=== PATIENT | male | born 1940 | race Caucasian/White ===

== ENCOUNTER 2017-12-17 06:56 | Day surgery (SDC) | payer MEDICARE ==
[2017-12-16 12:40] VITALS: BMI 31.5
[~2017-12-17 06:56] MED LIST: FLU VACC TS2017-18 (>65YR) 0.5 ML SYRINGE IM ONE
--- NOTE | 2017-12-17 08:19 | RAD ---
LUMBAR SPINE 4 VIEWS: HISTORY: Lumbar radiculopathy. FINDINGS: Severe hypertrophic degenerative changes re noted with large bridging osteophytes seen anteriorly and laterally throughout the lumbar spine, but most prominent at L1-2 and L2-3. Loss of disk space at a ll levels. No evidence of spondylolisthesis or spondylolysis. Prominent facet hypertrophy. Slight curvature to the right. IMPRESSION: Severe hypertrophic degenerative changes of the lumbar spine. POS: [facility]
[2017-12-17 08:35] VITALS: BP 163/72; TEMP 97.5
--- NOTE | 2017-12-17 10:23 | CT ---
CT LUMBAR MYELOGRAM: INDICATION: Lumbar radiculopathy. TECHNIQUE: Multiple CT images were obtained of the lumbar spine following intrathecal administration of an Isovu e contrast solution. Please see the separately dictated lumbar myelogram for details concerning the injection technique. Axial, coronal, and sagittal reformatted images were constructed from the raw d reymundo. Comparisons are made with the prior CT of the chest, abdomen, and pelvis dated 12/30/15. FINDINGS: There are moderate calcifications noted involving the abdominal aorta. There is a 1.6 cm nodule invo lving the left adrenal gland that cannot be fully characterized on the current study. This is relati vely stable from the comparison 05/27/16. There is a 1 cm nodule involving the right adrenal gland sary t is stable to the prior exam. There are scattered diverticula involving the colon. No acute fracture is evident. There is degenerative dextroscoliosis of the lumbar spine centered at L2-3. There is multilevel vacuum disk phenomenon seen at all lumbar intervertebral levels. The conu s is seen to terminate at L1. There are moderate degenerative changes of both SI joints. At L5-S1, there is loss of disk space height in addition to a broad-based disk-osteophyte complex wit h moderate to severe bilateral facet degenerative change inducing severe bilateral neural foraminal n arrowing. At L4-5, there is an asymmetric to the left broad-based disk-osteophyte complex. There is a superimp osed right paracentral protrusion. The procedure causes moderate narrowing of the right lateral rece ss with probable contrast of the traversing right L5 nerve root best seen on image 85 of series 3 and image 36 of series 401. The broad-based bulge in addition to the protrusion induces mild central ca nal narrowing. There is severe left neural foraminal narrowing due to the broad-based disk-osteophyt e complex and facet joint degenerative change. There is moderate sever right neural foraminal narrow ing. At L3-4, there is a broad-based disk-osteophyte complex also asymmetric to the left. There is ligame ntum flavum hypertrophy and facet hypertrophy inducing mild to moderate central canal narrowing. The re is loss of disk space height in addition to the disk-osteophyte complex and facet degenerative ralph nge inducing severe bilateral neural foraminal narrowing. At L2-3, there is retrolisthesis of L2 on 3. There is a broad-based disk-osteophyte complex. There is facet joint degenerative change. There is ligamentum flavum hypertorphy inducing moderate central canal narrowing. The constellation of finding also induces severe bilateral neural foraminal narrow ing. There is a pars defect seen on the left at L3. At the L1-L2 level, there is an asymmetric to the right disk-osteophyte complex. There is no appreci able central canal narrowing. Disk-osteophyte complex in addition to the facet hypertrophy induces m ild right neural foraminal narrowing. At T12-L1, there is no appreciable central canal or neural foraminal narrowing. IMPRESSION: 1. Multilevel neural foraminal narrowing most prominent from L2-3 through L5-S1. 2. There is central canal narrowing from L2-3 through L4-5, but most severe at L2-3. 3. There is a right paracentral protrusion at L4-5 causing moderate encroachment of the lateral rece ss with contact of the traversing right L5 nerve root. 4. Bilateral adrenal nodules are incompletely characterized but stable since the comparison in 2016. If clinically indicated, followup CT of the abdomen utilizing adrenal mass protocol may be helpful for further characterization. 5. Left pars defect at L3. POS: [facility]
--- NOTE | 2017-12-17 13:22 | RAD ---
FLUOROSCOPIC GUIDED LUMBAR MYELOGRAM: Date: 12/17/17 INDICATION: Lumbar radiculopathy. TECHNIQUE: Informed consent was obtained. Preprocedure cement block maker images were performed of the lumbar spine for delvis ng purposes. Site overlying the right aspect of the L3-4 interlaminar space was marked. The site was prepped and draped in the usual sterile fashion. Buffered 1% lidocaine was administered to overlying subcutaneous tissues. Under fluoroscopic guidance, a 22 gauge spinal needle was guided into the theca l sac. There was spontaneous return of CSF fluid at the hub. Following this, 12 mL of Isovue 200 solu tion was administered into the intrathecal space. There was visualization of the nerve roots within t he lower lumbar spine. The inner stylette was placed and needle was removed. The patient tolerated th e injection without difficulty. The patient is to have a follow-up CT lumbar myelogram for additional evaluation of lumbar spine. Total fluoroscopic time is 0.2 minutes with a total exposure of 463.8 mGy*cm^2. FINDINGS: There is degenerative dextroscoliosis of the lumbar spine centered at L2-3. There is severe multileve l disc degenerative and facet osteoarthritic change. No acute osseous abnormality is evident. There i s moderate degenerative change of both SI joints. IMPRESSION: Successful lumbar myelogram. POS: [facility]
== END 2017-12-17 09:55 | disposition home or self-care (01) ==
LOC: RAD 06:56
PROVIDERS: ATTEND Physician Assistant Surgical
DX: M48.062 Spinal stenosis, lumbar region with neurogenic claudication (principal); M51.16 Intervertebral disc disorders with radiculopathy, lumbar region; E27.8 Other specified disorders of adrenal gland; D53.9 Nutritional anemia, unspecified; Z95.0 Presence of cardiac pacemaker; Z79.82 Long term (current) use of aspirin; Z98.890 Other specified postprocedural states
CPT/HCPCS: 62304; 72120; 72132

== ENCOUNTER 2018-06-18 10:29 | Outpatient (CLI) | payer MEDICARE ==
[2018-06-18 12:44] LABS: Mean Corpuscular HGB CONC 33.7 g/dL (32.0-36.0); Mean Corpuscular Hemoglobin 32.6 pg (27.0-31.0); Mean Corpuscular Volume 96.7 fL (78.0-98.0); Mean Platelet Volume 7.9 fL (7.4-10.4); Platelet Count 182 thou/uL (130-400); RBC Distribution Width 12.9 % (11.5-14.5); Red Blood Cell (RBC) Count 3.06 mill/uL (4.70-6.10); White Blood Cell (WBC) Count 6.3 thou/uL (4.8-10.8)
[2018-06-18 13:03] LABS: Anion Gap 15 mmol/L (10-20); BUN (Urea Nitrogen) 37 mg/dL (8.4-25.7); Calc. Creatinine Clearance 0 mL/min (70-130); Calcium 8.9 mg/dL (7.8-10.44); Carbon Dioxide 23 mmol/L (23-31); Chloride 104 mmol/L (98-107); Estimated GFR-MDRD 39; Glucose 132 mg/dL (83-110); Potassium 4.1 mmol/L (3.5-5.1); Sodium 138 mmol/L (136-145)
[2018-06-18 13:05] LABS: INR-International Normal Ratio 1.1; Prothrombin Time 13.9 SEC (12.0-14.7)
[2018-06-18 13:06] LABS: PTT 34.2 SEC (22.9-36.1)
--- NOTE | 2018-06-18 15:18 | EKG ---
Test Reason : Blood Pressure : / mmHG Vent. Rate : 062 BPM Atrial Rate : 625 BPM P-R Int : 000 ms QRS Dur : 138 ms QT Int : 486 ms P-R-T Axes : 000 -73 095 degrees QTc Int : 493 ms AV sequential or dual chamber electronic pacemaker When compared with ECG of 05-MAR-2016 09:00, Vent. rate has increased BY 2 BPM Confirmed by JOSE WEST MD ([id number]) on 06/18/2018 3:18:25 PM Referred By: MERARI Confirmed By:JOSE WEST MD
== END 2018-06-18 10:30 | disposition home or self-care (01) ==
LOC: LABBT 10:29
PROVIDERS: ATTEND Surgery
DX: Z01.812 Encounter for preprocedural laboratory examination (principal); M48.061 Spinal stenosis, lumbar region without neurogenic claudication; M54.16 Radiculopathy, lumbar region
CPT/HCPCS: 80048; 85027; 85610; 85730; 93005; 93010

== ENCOUNTER 2018-06-25 12:17 | Day surgery (SDC) | payer MEDICARE ==
[2018-06-18 10:49] VITALS: BMI 32.1
[2018-06-25] MEDS ORDERED: CEFAZOLIN/Water 2 GM/20 ML SYRINGE ONE (13:05)
[2018-06-25] MEDS ORDERED: Sodium Chloride 0.9% 10 ML ONE (15:00)
[2018-06-25] MEDS ORDERED: Bacitracin Zinc Ointment 30 gm TUBE ONE (15:00)
[2018-06-25] MEDS ORDERED: Thrombin 5000 UNITS/5 ML VIAL ONE (15:00)
[2018-06-25] MEDS ORDERED: Fentanyl 100 MCG/2 ML VIAL ONE ×3 (15:02→18:44)
[2018-06-25] MEDS ORDERED: Albumin 5% 500 ML ONE (17:13)
[2018-06-25] MEDS ORDERED: Milk Of Magnesia 30 ML UDCUP PO PRN (18:33)
[2018-06-25] MEDS ORDERED: Mag-Al 1200 mg/1200 mg/30 ML UDCUP PO PRN (18:33)
[2018-06-25] MEDS ORDERED: Acetaminophen/Codeine 30-300mg Tablet PO PRN (18:33)
[2018-06-25] MEDS ORDERED: traMADol HCl 50 MG TAB PO PRN (18:33)
[2018-06-25] MEDS ORDERED: Bisacodyl 10 MG SUPP PR PRN (18:33)
[2018-06-25] MEDS ORDERED: tiZANidine HCl 4 MG TAB PO PRN (18:33)
[2018-06-25] MEDS ORDERED: Fleet Enema 133 ML BOT PR PRN (18:33)
[2018-06-25] MEDS ORDERED: Acetaminophen 325 MG TAB PO PRN (18:33)
[2018-06-25] MEDS ORDERED: Promethazine HCl 25 MG/ML VIAL IM PRN (18:33)
[2018-06-25] MEDS ORDERED: HYDROcodone/Acetaminophen 7.5/325 mg Tablet PO PRN (18:33)
[2018-06-25] MEDS ORDERED: Furosemide 40 MG TAB PO PRN (18:37)
[2018-06-25] MEDS ORDERED: Sodium Chloride 0.9% 1,000 ML IV SCH (18:45)
[2018-06-25] MEDS ORDERED: Carvedilol 25 MG TAB PO SCH (20:00)
[2018-06-25] MEDS ORDERED: cloNIDine 0.1 MG TAB PO SCH (21:00)
[2018-06-25] MEDS: CEFAZOLIN/Water 2 GM/20 ML SYRINGE SLOW IVP SCH (21:08)
--- NOTE | 2018-06-25 23:05 | OP ---
SURGEON: Jason Morocho M.D. Neurosurgery. VP OF MARKETING: Matty Guido PA-C. PREPROCEDURE DIAGNOSES: Multilevel lumbar stenosis with low back and leg pain. POSTPROCEDURE DIAGNOSES: Multilevel lumbar stenosis with low back and leg pain. PROCEDURES: 1. L2-L3, L3-L4, L4-L5 laminectomies, partial facetectomies, and foraminotomies of the L2, L3, L4, L 5 nerve roots. DESCRIPTION OF PROCEDURE: After informed consent was obtained from the patient, the patient was brou ght to the OR, he was placed in excellent general endotracheal anesthesia and positioned prone on the OR table. All appropriate points were padded. We identified the L2, L3, L4, L5 dorsal spines and l tadeo. This region was sterilely cleansed, prepared, and draped. Proper patient pause and identific ation was carried out. The wound was then opened in combination of sharp, monopolar and blunt dissec tion and the L2, L3, L4, L5 dorsal spines lamina were exposed. Localization film confirmed our area of interest. We then performed an L2, L3, L4, L5 laminectomies, partial facetectomies and foraminoto mies over the L2, L3, L4, L5 nerve roots. We had excellent decompression of the common dural tube an d the nerve roots. Copious irrigation occurred throughout. The wound was then maximally hemostased throughout and closed in anatomical layers following sprinkle vancomycin powder.
[2018-06-26] MEDS: CEFAZOLIN/Water 2 GM/20 ML SYRINGE SLOW IVP SCH (05:50)
[2018-06-26] MEDS ORDERED: Potassium Chloride 8 MEQ TAB PO SCH (08:00)
[2018-06-26] MEDS ORDERED: metFORMIN 500 MG TAB PO SCH (08:00)
[2018-06-26] MEDS ORDERED: Carvedilol 25 MG TAB PO SCH (08:00)
[2018-06-26] MEDS ORDERED: Ferrous Sulfate 325 MG TAB PO SCH (08:00)
[2018-06-26] MEDS ORDERED: Dronedarone HCl 400 MG TAB PO SCH (08:00)
[2018-06-26 08:38] VITALS: BP 137/77; TEMP 98.3
[2018-06-26] MEDS ORDERED: Valsartan 80 MG TAB PO SCH (09:00)
[2018-06-26] MEDS ORDERED: Famotidine 20 MG TAB PO SCH (09:00)
[2018-06-26] MEDS ORDERED: CALCIUM CARB CIT PO SCH (09:00)
[2018-06-26] MEDS ORDERED: MAGNESIUM OX PO SCH (09:00)
[2018-06-26] MEDS ORDERED: Non-Formulary Item 1 EACH (Valsartan/Hydrochlorothiazide [Valsartan-Hctz 320-25 Mg Tab] 1 PO SCH (09:00)
[2018-06-26] MEDS ORDERED: Hydrochlorothiazide 25 MG TAB PO SCH (09:00)
--- NOTE | 2018-06-26 17:57 | DIS ---
DATE OF ADMISSION: 06/25/2018 DATE OF DISCHARGE: 06/26/2018 DISCHARGE DIAGNOSES: Include, 1. Low back pain with lumbar radiculopathy. 2. Multilevel lumbar stenosis. HOSPITAL COURSE: Mr. Parry was admitted to undergo surgical procedure with Dr. Morocho including L2- L5 laminectomies, facetectomies and foraminotomies. The patient tolerated the procedure well and rec overed for 1 overnight stay in the surgical floor. At the time of discharge, he has met criteria for dismissal. Appropriate outpatient followup appointments and education were provided. He had good s trength in the bilateral lower extremities and was walking well. The patient's family was pleased wi th his outcome postoperatively. They understand to call the office with additional questions or conc erns prior to his next followup appointment.
== END 2018-06-26 11:51 | disposition home or self-care (01) ==
LOC: SDC 12:17 → SURG B 19:48 → SDC 06-26 11:51
PROVIDERS: ATTEND Surgery
PROC: 01NB0ZZ Release Lumbar Nerve, Open Approach (ICD-10-PCS; principal; 2018-06-25)
DX: M48.061 Spinal stenosis, lumbar region without neurogenic claudication (principal); M54.16 Radiculopathy, lumbar region
CPT/HCPCS: 63047; 63048 ×2; 76001; 96374; P9045; A4216; J3010; J3370; J3490

== ENCOUNTER 2018-12-18 15:27 | Inpatient (IN) | payer MEDICARE ==
[2018-12-18 16:11] LABS: #Eosinphils 0.2 thou/uL (0.0-0.7); #Lymphocytes 0.9 thou/uL (1.20-3.40); #Neutrophils 4.6 thou/uL (1.40-6.50); %Basophils 0.4 % (0.0-1.0); %Eosinophils 3.4 % (0.0-10.0); %Lymphocytes 13.6 % (21.0-51.0); %Monocytes 14.5 % (0.0-10.0); %Neutrophils 68.1 % (42.0-75.0); Hemoglobin 9.6 g/dL (14.0-18.0); Mean Corpuscular HGB CONC 32.5 g/dL (32.0-36.0); Mean Corpuscular Hemoglobin 31.8 pg (27.0-31.0); Mean Corpuscular Volume 97.9 fL (78.0-98.0); Mean Platelet Volume 9.3 fL (7.4-10.4); Platelet Count 190 thou/uL (130-400); RBC Distribution Width 14.1 % (11.5-14.5); Red Blood Cell (RBC) Count 3.03 mill/uL (4.70-6.10); White Blood Cell (WBC) Count 6.8 thou/uL (4.8-10.8)
[2018-12-18 16:32] LABS: ALT (SGPT) 55 U/L (8-55); AST (SGOT) 68 U/L (5-34); Albumin 3.8 g/dL (3.4-4.8); Alkaline Phosphatase 159 U/L (40-150); Anion Gap 17 mmol/L (10-20); BUN (Urea Nitrogen) 79 mg/dL (8.4-25.7); Bilirubin, Total 0.6 mg/dL (0.2-1.2); Calc. Creatinine Clearance 0 mL/min (70-130); Calcium 9.3 mg/dL (7.8-10.44); Carbon Dioxide 23 mmol/L (23-31); Chloride 95 mmol/L (98-107); Estimated GFR-MDRD 21; Globulin 3.5 g/dL (2.4-3.5); Glucose 122 mg/dL (83-110); Protein, Total 7.3 g/dL (5.8-8.1); Sodium 131 mmol/L (136-145)
[2018-12-18 16:53] LABS: CKMB 3.6 ng/mL (0-6.6)
--- NOTE | 2018-12-18 16:56 | RAD ---
CHEST ONE VIEW: 12/18/18 HISTORY: Shortness of breath. COMPARISON: Radiograph 01/14/16. FINDINGS: The heart size is mildly enlarged. Mild pulmonary venous congestion. No pneumothorax. Chronic blunti ng of the left lateral costophrenic sulcus due to increased pericardial fat. IMPRESSION: Similar exam. No acute intrathoracic abnormality. POS: [facility]
[2018-12-18] MEDS ORDERED: Nitroglycerin 2% Ointment 1 INCH/1 GM Packet ONE (17:09)
[2018-12-18] MEDS ORDERED: Aspirin 325 MG TAB ONE (17:09)
[2018-12-18] MEDS ORDERED: Furosemide 40 MG/4 ML VIAL ONE (17:09)
[2018-12-18] MEDS ORDERED: Acetaminophen 325 MG TAB PO PRN (18:53)
[2018-12-18] MEDS ORDERED: Ondansetron ODT 4 MG TAB PO PRN (18:53)
[2018-12-18] MEDS ORDERED: Ondansetron PF 4 MG/2 ML Vial IVP PRN (18:53)
[2018-12-18] MEDS ORDERED: HumaLOG 300 UNITS/3 ML VIAL SC PRN ×2 (18:56)
[2018-12-18] MEDS ORDERED: Dextrose 50% Abboject 50 ML SYRINGE SLOW IVP PRN (18:56)
[2018-12-18] MEDS ORDERED: Dextrose 5% in Water 1,000 ML IV PRN (18:56)
[2018-12-18] MEDS ORDERED: Dronedarone HCl 400 MG TAB PO SCH (20:00)
[2018-12-18 20:08] LABS: Troponin I 0.232 ng/mL (< 0.028)
--- NOTE | 2018-12-18 20:12 | HP ---
PRIMARY CARE PHYSICIAN: Dr. Forrest Barrera. PRIMARY APPEALS REFEREE: Dr. Babin. CHIEF COMPLAINT: Dyspnea on exertion. HISTORY OF PRESENT ILLNESS: Mr. Parry is a pleasant 78-year-old male with past medical history of CHF with atrial fibrillation, status post pacemaker; hypertension; hyperlipidemia; diabetes mellitus; and gout, who had presented to [facility] after experiencing worsening shortness of breath over the last week. He states he becomes more short of breath with exertion, he had denied any fever, chills, any headache, dizziness, or blurred vision. Denies any chest pain, abdominal pain, nausea, or vomiting. He reports daily alcohol drinker; however, he has not drank in over a week due to not feeling well. He states that he sees Dr. Babin, compensation administrator. He states that he underwent an echocardiogram back in September, which he reports Dr. Babin telling him that he has systolic heart failure, which is mild. However, he was not able to tell me any further details. He reports being recently diagnosed with gout and started on Colcrys and allopurinol. During his initial workup, he was found to be chronically anemic with a hemoglobin of 9.6, which appears to be about his baseline, he takes iron supplementation at home. Sodium is low at 131, creatinine is elevated at 2.93. Lactic acid normal at 0.8. Troponin is indeterminately elevated at 0.256. BNP elevated at 990.5. Chest x-ray revealed heart size is mildly enlarged with mild pulmonary venous congestion with no pneumothorax noted. He was given aspirin 325 mg in the emergency department along with 1 inch of nitro transdermal and IV Lasix 40 mg x1. Vital signs remained stable with a blood pressure of 135/60, pulse 65, respirations 22, temperature 98.7 degrees Fahrenheit, and O2 saturation is 100% on room air. It was determined that the patient be admitted under observation for continued diuresis. Cardiology Services will be consulted for further evaluation, and we will seek to obtain his records from Dr. Babin' office for recent echocardiogram and possible other cardiac workup in the past. REVIEW OF SYSTEMS: All other systems reviewed and found to be negative unless mentioned in HPI. PAST MEDICAL HISTORY: Congestive heart failure, atrial fibrillation, hypertension, hyperlipidemia, diabetes mellitus, gout, obesity, and chronic anemia due to iron deficiency anemia. PAST SURGICAL HISTORY: 1. Back surgery with Dr. Morocho in May 2018. 2. Right wrist carpal tunnel release. PAST PSYCHIATRIC HISTORY: None. SOCIAL HISTORY: The patient reports drinking 3 to 4 beers daily; however, has not had a drink in over a week due to not feeling well. Denies any tobacco or illicit drug use. ALLERGIES: KNOWN ALLERGIES, NONE. CURRENT HOME MEDICATIONS: 1. Aspirin 81 mg daily. 2. Clonidine 0.1 mg oral once daily. 3. Valsartan/hydrochlorothiazide 320/25 mg oral once daily. 4. Carvedilol 25 mg oral once daily. 5. Furosemide 80 mg p.o. b.i.d. 6. Multaq 400 mg oral twice daily. 7. Colcrys 0.6 oral twice daily. 8. Januvia 100 mg oral once daily. 9. Pepcid 40 mg oral once a day. 10. Calcium/magnesium 500/250 mg oral once daily. 11. Potassium 595 mg oral once daily. 12. Iron 65 mg oral twice daily. 13. Allopurinol 100 mg oral once daily. PHYSICAL EXAMINATION: VITAL SIGNS: Blood pressure 135/60, pulse 65, respirations 22, temperature 98.7 degrees Fahrenheit, and O2 saturation is 100% on room air. GENERAL: The patient is awake, alert, and oriented x3. No acute distress noted. He appears to be obese. HEENT: Atraumatic, normocephalic. Pupils round and reactive to light. Extraocular muscles intact. Moist mucous membranes noted. NECK: Soft and supple. No JVD. No bruit noted. CARDIOVASCULAR: Positive S1 and S2. Regular rate and rhythm, 2/6 systolic murmur auscultated. RESPIRATORY: Clear to auscultation bilaterally. No wheezes, rales, or rhonchi. ABDOMEN: Soft, nontender. Bowel sounds present. No guarding, no rebound. MUSCULOSKELETAL: Strength 3+ bilaterally in upper extremities, which appears to be patient's baseline. Moves all extremities equal. Pedal and radial pulses palpable and equal bilaterally. NEUROLOGIC: Cranial nerves 2 through 12 grossly intact. No focal deficits noted. Speech, intact and normal. Gait, not assessed. SKIN: Warm, dry, and intact. No rashes. No lesions. The patient does have a small lipoma on the right side of the jain. He also has surgical scarring, right wrist and posterior trunk. PSYCHIATRIC: Good mood and affect. LABORATORY DATA: WBC 6.8, RBC 3.03, hemoglobin 9.6, and platelets 190. Sodium 131, potassium 4.0, anion gap 17, BUN 79, creatinine 2.93, estimated GFR 21, glucose 122, lactic acid 0.8, alkaline phosphatase 159, CK-MB 3.6, troponin 0.256. BNP 990.5. DIAGNOSTIC IMAGING: Chest x-ray showed heart size is mildly enlarged with mild pulmonary venous congestion. No pneumothorax noted. ASSESSMENT AND PLAN: 1. Acute on chronic congestive heart failure. Continue with IV furosemide for further diuresis. Continue on the patient's home regimen. Cardiology Services will be consulted for further evaluation, and we will seek to obtain further records from Dr. Babin' office for recent echocardiogram. We will await further recommendations from Cardiology with possible further cardiac workup. 2. Elevated troponin, currently at indeterminate 0.256. Trend troponins. This can likely be secondary to acute on chronic heart failure. EKG showing paced rhythm. 3. Acute on chronic kidney disease, stage 2. Recheck BMP in a.m. Hold nephrotoxic medications. 4. Hypertension, currently stable. Continue the patient's home regimen; however, we will hold the patient's losartan due to acute on chronic kidney disease. We will restart once his creatinine is improved. 5. Diabetes mellitus. We will place the patient on insulin sliding scale with Accu-Cheks. Also, placed on consistent carb diet. 6. Hyperlipidemia. Continue on the patient's home regimen. 7. Deep venous thrombosis and gastrointestinal prophylaxis. 8. Code status, full code. Surrogate decision maker will be his . DISPOSITION: Pending further workup and clinical findings. Job ID: [id number]
[2018-12-18] MEDS: Carvedilol 25 MG TAB PO SCH (20:31)
[2018-12-18] MEDS: cloNIDine 0.1 MG TAB PO SCH (20:31)
[2018-12-18] MEDS ORDERED: Famotidine 20 MG TAB PO SCH (21:00)
[2018-12-18 22:26] VITALS: BMI 33.2
[2018-12-18 22:55] LABS: Troponin I 0.233 ng/mL (< 0.028)
[2018-12-19 05:25] LABS: Band 5 % (5-11); Eosinophils 8 % (0-10); Hemoglobin 8.7 g/dL (14.0-18.0); Lymphocytes 21 % (21-51); MDiff Complete? YES; Mean Corpuscular HGB CONC 32.9 g/dL (32.0-36.0); Mean Corpuscular Hemoglobin 32.2 pg (27.0-31.0); Mean Corpuscular Volume 97.9 fL (78.0-98.0); Metamyelocyte 1 % (0-0); Monocytes 10 % (0-10); Neutrophil 52 % (42-75); Platelet Count 171 thou/uL (130-400); Platelet Morphology Comment Appears Adequate; RBC Distribution Width 14.1 % (11.5-14.5); RBC Morphology Normal; Reactive Lymphocytes 1 % (0-10); Red Blood Cell (RBC) Count 2.71 mill/uL (4.70-6.10); White Blood Cell (WBC) Count 4.5 thou/uL (4.8-10.8)
[2018-12-19 05:26] LABS: Anion Gap 17 mmol/L (10-20); BUN (Urea Nitrogen) 79 mg/dL (8.4-25.7); Calc. Creatinine Clearance 35 mL/min (70-130); Calcium 8.8 mg/dL (7.8-10.44); Carbon Dioxide 24 mmol/L (23-31); Chloride 98 mmol/L (98-107); Estimated GFR-MDRD 24; Glucose 105 mg/dL (83-110); Potassium 3.4 mmol/L (3.5-5.1); Sodium 136 mmol/L (136-145)
[2018-12-19] MEDS: Furosemide 40 MG/4 ML VIAL SLOW IVP SCH ×2 (06:12→15:06)
[2018-12-19] MEDS ORDERED: Ferrous Sulfate 325 MG TAB PO SCH (09:00)
[2018-12-19] MEDS: Aspirin Chewable 81 MG TAB PO SCH (09:22)
[2018-12-19] MEDS: Allopurinol 100 MG TAB PO SCH (09:22)
[2018-12-19] MEDS: Carvedilol 25 MG TAB PO SCH ×2 (09:22→21:17)
[2018-12-19] MEDS: Dronedarone HCl 400 MG TAB PO SCH ×2 (09:22→16:16)
[2018-12-19] MEDS: Famotidine 20 MG TAB PO SCH (09:22)
[2018-12-19] MEDS: Colchicine 0.6 MG TAB PO SCH ×2 (09:23→21:17)
--- NOTE | 2018-12-19 09:50 | PDOC.PN ---
- Subjective Encounter Start Date: 12/19/18 Encounter Start Time: 09:47 Subjective: Patient reports increased abdominal distention over the last couple of days -: has had BARRETO, which he doesnt have at baseline despite hx of CHF. -: Has had black stools which happens often due to Fe infusions. His last infusion was 2 weeks ago. 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 States he was told he had a chronic "leak". Denies any abdominal pain. No n/v. Tolerating food intake. Fluid intake consists of 3-4 cans of beer a day, 12 oz, and coffee. Denies every having symptoms of alcohol withdrawal i.e. tremors or seizures. Denies any urinary symptoms. No dysuria or hematuria. Afebrile without chills or sweats. No headaches or dizziness. Has not had any chest pain. No lower leg swelling or calf tenderness. No cough or hemoptysis. - Objective Resuscitation Status - Order Detail: 12/18/18 18:53 Resuscitation Status Routine Co-Sign Provider: Resuscitation Status: FULL: Full Resuscitation Vital Signs & Weight: Vital Signs (12 hours) Temp Pulse Resp BP Pulse Ox 12/19/18 03:57 97.8 F 61 18 112/57 L 97 12/18/18 23:32 97.9 F 70 20 91/49 L 97 Weight Admit Weight 238 lb Weight 235 lb 11.2 oz I&O: 12/18/18 12/19/18 12/20/18 06:59 06:59 06:59 Intake Total 360 Output Total 1200 600 Balance -840 -600 Result Diagrams: 12/19/18 04:32 12/19/18 04:32 Additional Labs: Accuchecks 12/18/18 20:29 POC Glucose 177 H Phys Exam - Physical Examination Constitutional: NAD Sat upright in chair HEENT: PERRLA, sclera anicteric, oral pharynx no lesions Neck: supple, full ROM Respiratory: clear to auscultation bilateral reduced at bases Cardiovascular: RRR Gastrointestinal: soft, non-tender distended abdomen, no bowel sounds, no guarding/rigidity Musculoskeletal: no edema, pulses present Neurological: non-focal, moves all 4 limbs Psychiatric: normal affect, A&O x 3 Skin: no rash Dx/Plan (1) Anemia Code(s): D64.9 - ANEMIA, UNSPECIFIED Status: Acute (2) Chronic diastolic (congestive) heart failure Code(s): I50.32 - CHRONIC DIASTOLIC (CONGESTIVE) HEART FAILURE Status: Chronic (3) Diabetes type 2, controlled Code(s): E11.9 - TYPE 2 DIABETES MELLITUS WITHOUT COMPLICATIONS Status: Chronic (4) Hypertension Code(s): I10 - ESSENTIAL (PRIMARY) HYPERTENSION Status: Chronic (5) Pacemaker Code(s): Z95.0 - PRESENCE OF CARDIAC PACEMAKER Status: Acute Comment: Placed due to sick-sinus syndrome (6) Acute kidney injury superimposed on chronic kidney disease Code(s): N17.9 - ACUTE KIDNEY FAILURE, UNSPECIFIED; N18.9 - CHRONIC KIDNEY DISEASE, UNSPECIFIED Status: Acute - Plan BARRETO potentially due to acute exacerbation of CHF and symptomatic anemia. -: CXR notable for enlarged heart and pulmonary vascular congestion. S/p lasix -: BNP 990. Echo requested. Awaiting Cardiology. -: Abdo US ordered. Check ferritin, Type & Screen. GI consult requested. -: Keep NPO. Continue home meds. Monitor glucose. * .
[2018-12-19] MEDS: Dextrose 5% in Water 500 ML IV SCH ×2 (11:00→19:54)
--- NOTE | 2018-12-19 15:50 | CON ---
DATE OF CONSULTATION: 12/19/2018 REASON FOR CONSULTATION: Heart failure. HISTORY OF PRESENT ILLNESS: Mr. Parry is a pleasant 78-year-old black gentleman, patient of Dr. Babin, who comes to the hospital for increased shortness of breath. He had noticed for the last week, he has been noticing worsening of his shortness of breath and increased abdominal girth. He has a history of right-sided heart failure in the past with pacemaker placement again as well for sick sinus syndrome. He also has a history of atrial fibrillation, currently in sinus rhythm. He doubled up on his Lasix in the last few days to 80 b.i.d., but this was not good enough and he had to come in for evaluation. PAST MEDICAL HISTORY: 1. History of heart failure, right-sided. 2. Paroxysmal atrial fibrillation. 3. Hypertension. 4. Hyperlipidemia. 5. Type 2 diabetes. 6. Gout. 7. Obesity. 8. Chronic anemia due to iron deficiency. PAST SURGICAL HISTORY: 1. Back surgery in May of 2018. 2. Right wrist carpal tunnel release. SOCIAL HISTORY: He drinks 4 beers a day, but none in the last week. No tobacco or drugs. ALLERGIES: NO KNOWN DRUG ALLERGIES. OUTPATIENT MEDICATIONS: Include: 1. Aspirin 81 a day. 2. Clonidine 0.1 once a day. 3. Valsartan/hydrochlorothiazide 320/25 a day. 4. Carvedilol 25 a day. 5. Furosemide 80 mg b.i.d. 6. Multaq 400 mg twice a day. 7. Colcrys 0.6 b.i.d., recently started on for gout. 8. Januvia. 9. Pepcid. 10. Calcium and magnesium. 11. Potassium. 12. Iron 65 mg twice a day. 13. Allopurinol 100 mg a day. REVIEW OF SYSTEMS: A 12-point review of systems was done, and it was all negative unless stated in the history of present illness. PHYSICAL EXAMINATION: VITAL SIGNS: Temperature 97.6, pulse 69, respiratory rate 20, saturating 95% on room air, blood pressure 92/51. GENERAL: Awake, alert, and oriented x3, in no distress. HEENT: Normocephalic and atraumatic. NECK: Supple. LUNGS: Have mildly reduced breath sounds in the left base. ABDOMEN: Has positive ascitic wave. Nontender. EXTREMITIES: 1+ edema. SKIN: Warm and dry. LABORATORY DATA: Laboratory work was reviewed. CBC with a white count of 4.5, hemoglobin of 8.7, hematocrit of 26, platelet count of 171. Chemistry remarkable only for potassium of 3.4, BUN of 79, creatinine of 2.63, this has come down from yesterday at 2.93. Troponin is indeterminate x2 at 0.25 and then 0.23 and 0.23 again. BNP was 923. Echocardiogram was reviewed. He has normal LV systolic function, but RV is dilated with reduced RV systolic function, RVSP was only 29. This is all suggestive of right-sided failure. ASSESSMENT: 1. RV dysfunction. 2. Acute on chronic diastolic heart failure. 3. Alcohol use. 4. Anemia of iron deficiency. PLAN: 1. Agree with IV diuresis. 2. Echocardiogram was reviewed. 3. Continue current dose of Lasix. Continue to monitor creatinine daily. 4. Awaiting GI recommendations per primary team. 5. Dr. Babin, primary vp data, will have further recommendations in the morning. Job ID: [id number]
--- NOTE | 2018-12-19 15:56 | ULT ---
ABDOMEN ULTRASOUND: HISTORY: Abdominal distention. COMPARISON: None. TECHNIQUE: Utilizing a multihertz transducer, sonographic imaging of the abdomen is performed in the longitudina l and transverse plane. FINDINGS: Limited evaluation due to body habitus. The head and proximal pancreatic body has a normal echotexture. The remainder of the pancreas is obs cured by bowel gas. The visualized IVC is unremarkable. Aorta is obscured. Hepatic parenchyma has a normal echotexture. No hepatic masses or intrahepatic biliary dilatation. Contour of the hepatic margin maintained. Right hepatic lobe measures 16.6 cm. No sonographic evidence of cholelithiasis or pericholecystic fluid. Gallbladder wall is thickened me asuring 0.4 cm. Negative Estrada's sign. Main portal vein is patent. Appropriate directional flow. Bilateral renal cortical thinning. Bilaterally, no hydronephrosis. The right kidney measures 12.0 x 5.7 x 5.9 cm. The left kidney measures 6.3 x 5.5 x 11.3 cm. Spleen is enlarged measuring 13.6 cm. Common bile duct diameter is 0.6 cm. IMPRESSION: Nonspecific gallbladder wall thickening. If there is concern for acalculus cholecystitis, consider H THAD scan. POS: [facility]
[2018-12-19] MEDS ORDERED: GoLYTELY 4,000 ml Bottle PO SCH (20:00)
[2018-12-19] MEDS: cloNIDine 0.1 MG TAB PO SCH (21:17)
--- NOTE | 2018-12-20 00:48 | CON ---
DATE OF CONSULTATION: 12/19/2018 REASON FOR CONSULTATION: Symptomatic anemia. CONSULTING PHYSICIAN: YOLANDA Sanchez HISTORY OF PRESENT ILLNESS: The patient is a 78-year-old male with past medical history of congestive heart failure, atrial fibrillation, status post pacemaker, hypertension, hyperlipidemia, diabetes, gout, and chronic anemia, presenting with increased shortness of breath. He states that he was in his usual state of health until approximately 1 week ago when he began having increased shortness of breath both at exertion and at rest. This progressively worsened over the last week and was associated with increased abdominal bloating as well as eructation/burping. Otherwise, he states that he was doing well, although he has been having approximately 1 to 2 solid dark/black bowel movements per day, but he has also been taking iron supplementation for close to 2 years at this point. Currently, he denies any nausea, vomiting, fevers, chills, hematemesis, hematochezia, abdominal pain, diarrhea, or constipation. Of note, the patient underwent a colonoscopy in 2015 and was noted to have a bleeding arteriovenous malformation within the cecum. He had repeat both EGD and colonoscopy performed on December 29, 2017, which did not remark on his upper endoscopy, but did remark on multiple colonic AVMs that were intervened upon at that time. REVIEW OF SYSTEMS: A ten-category review of systems was obtained with all responses negative except for the pertinent positives as listed in HPI. PAST MEDICAL HISTORY: As per HPI. PAST SURGICAL HISTORY: 1. Back surgery. 2. Right wrist carpal tunnel release. FAMILY HISTORY: Denies any GI malignancies. SOCIAL HISTORY: Denies any tobacco or illicit drug use, but drinks approximately 3 to 4 beers daily. OUTPATIENT MEDICATIONS: Reviewed. ALLERGIES: NO KNOWN DRUG ALLERGIES. PHYSICAL EXAMINATION: VITAL SIGNS: Temperature 98.4, pulse 63, blood pressure 121/58, respiratory rate 19, and saturating 93% on room air. GENERAL: The patient is lying in bed, in no acute distress. Alert and oriented x4. HEENT AND NECK: Neck, supple. No JVD or scleral icterus noted. Normocephalic and atraumatic. CARDIOVASCULAR: Regular rate and rhythm with no discernible murmurs, gallops, or rubs. RESPIRATORY: Clear to auscultation bilaterally with no discernible wheezes or rales. ABDOMEN: Normoactive bowel sounds. Soft, nontender, and nondistended. EXTREMITIES: No cyanosis, clubbing, or edema. LABORATORY DATA: CBC with a white blood cell count of 4.5, hemoglobin 8.7, hematocrit 26.5, and platelets 171. Chemistry with a sodium of 136, potassium 3.4, chloride 98, CO2 of 24, BUN 79, creatinine 2.63, glucose 105, AST 68, ALT 55, alkaline phosphatase 159, and total bilirubin 0.6. IMAGING DATA: No current GI imaging is available for review. Actually, abdominal ultrasound was obtained on December 19, 2018, which showed normal-appearing pancreas and hepatic parenchyma without any hepatic masses or intrahepatic biliary dilatation. The gallbladder wall was mildly thickened at 0.4 cm, but did not display any pericholecystic fluid or have Estrada sign. ASSESSMENT AND PLAN: The patient is a 78-year-old male with past medical history of congestive heart failure, atrial fibrillation, status post pacemaker, hypertension, hyperlipidemia, diabetes, gout, and chronic anemia, presenting with symptomatic anemia. The patient is presenting with rather acute onset of increased shortness of breath both at exertion and at rest with a mild derangement in his chronic anemia. He currently denies any evidence of overt GI bleeding, but does have a history of colonic arteriovenous malformations that could be a potential source of bleeding at this time. However, he does have approximately 1 to 2 dark/black bowel movements per day, which is probably due to iron supplementation that he has been taking for the last two years, but an upper GI bleeding source cannot be ruled out at this time either given this finding. RECOMMENDATIONS: 1. We would continue to trend hemoglobin and hematocrit and transfuse as necessary to maintain an hemoglobin and hematocrit of 07/21. 2. Continue to monitor clinically for signs of active GI bleeding. 3. We would make the patient n.p.o. at midnight as well as administer GoLYTELY prep in anticipation for both EGD and colonoscopy tomorrow morning. 4. Further recommendations to follow endoscopic intervention. Job ID: [id number]
[2018-12-20 05:34] LABS: #Eosinphils 0.2 thou/uL (0.0-0.7); #Lymphocytes 0.8 thou/uL (1.20-3.40); #Monocytes 0.7 thou/uL (0.11-0.59); %Basophils 0.1 % (0.0-1.0); %Eosinophils 4.3 % (0.0-10.0); %Lymphocytes 13.6 % (21.0-51.0); %Monocytes 12.5 % (0.0-10.0); %Neutrophils 69.5 % (42.0-75.0); Hemoglobin 9.4 g/dL (14.0-18.0); Mean Corpuscular HGB CONC 33.1 g/dL (32.0-36.0); Mean Corpuscular Hemoglobin 32.7 pg (27.0-31.0); Mean Corpuscular Volume 98.8 fL (78.0-98.0); Mean Platelet Volume 8.7 fL (7.4-10.4); Platelet Count 191 thou/uL (130-400); RBC Distribution Width 14.1 % (11.5-14.5); Red Blood Cell (RBC) Count 2.88 mill/uL (4.70-6.10); White Blood Cell (WBC) Count 5.8 thou/uL (4.8-10.8)
[2018-12-20 05:57] LABS: Anion Gap 17 mmol/L (10-20); BUN (Urea Nitrogen) 66 mg/dL (8.4-25.7); Calc. Creatinine Clearance 40 mL/min (70-130); Calcium 9.1 mg/dL (7.8-10.44); Carbon Dioxide 26 mmol/L (23-31); Chloride 101 mmol/L (98-107); Estimated GFR-MDRD 28; Glucose 106 mg/dL (83-110); Potassium 3.5 mmol/L (3.5-5.1); Sodium 140 mmol/L (136-145)
[2018-12-20] MEDS: Furosemide 40 MG/4 ML VIAL SLOW IVP SCH ×2 (06:29→13:09)
[2018-12-20] MEDS: Allopurinol 100 MG TAB PO SCH (09:00)
[2018-12-20] MEDS: Dronedarone HCl 400 MG TAB PO SCH ×2 (09:00→17:19)
[2018-12-20] MEDS: Carvedilol 25 MG TAB PO SCH ×2 (09:00→20:59)
[2018-12-20] MEDS: Colchicine 0.6 MG TAB PO SCH ×2 (09:01→20:59)
[2018-12-20] MEDS: Famotidine 20 MG TAB PO SCH (09:01)
[2018-12-20] MEDS: Aspirin Chewable 81 MG TAB PO SCH (09:01)
[2018-12-20] MEDS ORDERED: PHENYLEPHRINE-NS 100 MCG/ML 10 ML SYRINGE ONE (11:41)
[2018-12-20] MEDS ORDERED: Lidocaine 1% PF 5 ML VIAL ONE (11:41)
[2018-12-20] MEDS ORDERED: PROPOFOL 200 MG/20 ML VIAL ONE (11:41)
--- NOTE | 2018-12-20 15:54 | OP ---
DATE OF PROCEDURE: 12/20/2018 PROCEDURES PERFORMED: Esophagogastroduodenoscopy with biopsy, colonoscopy with polypectomy, and ablation of arteriovenous malformations for control of hemorrhage. PREPROCEDURE DIAGNOSES: 1. Iron deficiency anemia and abdominal distention. 2. Prior history of polyps and arteriovenous malformation of the colon. POSTOPERATIVE DIAGNOSES: 1. Esophagogastroduodenoscopy notable for mild antral gastritis, small erosions without bleeding, and biopsies obtained. 2. Esophagus and duodenum to the third portion normal. 3. Colonoscopy notable for 3 polyps in the right colon removed by snare polypectomy and submitted to Pathology. 4. Scattered arteriovenous malformations in the right and left colon, treated with argon plasma coagulation on right colon settings 0.6 L/minute and 25 arzola. RECOMMENDATIONS: 1. Iron supplementation. 2. Await biopsies. 3. PPI. 4. Avoid NSAIDs. ANESTHESIA: TIVA. DESCRIPTION OF PROCEDURE: The patient was informed of the risks, benefits, and possible complications of endoscopy including perforation, reaction to medication, and aspiration, informed consent was obtained. The patient was brought to the endoscopy suite, where he was sedated in gradual fashion. Once he was comfortable, a bite block was placed inside his orifice. The endoscope was advanced to the esophagus, stomach, and second and third portion of the duodenum and slowly removed. There was good visualization of the mucosa. The esophagus was normal. Stomach was notable for antral gastritis with few small erosions. Biopsies were obtained to evaluate pathology. Retroflexed views in the stomach were normal except for small hiatal hernia. The duodenum was normal at third portion. The scope was removed and the patient returned to the room and a rectal examination performed. The scope was advanced through the anal canal through the colon. The cecum was identified by the ileocecal valve and appendiceal orifice. There were a few small AVMs scattered throughout the colon, which were abated with argon plasma coagulation on the right colon settings. None of these were bleeding. There were 3 polyps in the right colon, was removed by hot snare polypectomy. One of the three was retrieved. They were all less than 5 mm in size. Otherwise in the colon, there was no signs of active bleeding. Retroflexed views were normal. The scope was removed. The patient tolerated the procedure well. No complications. Job ID: [id number]
--- NOTE | 2018-12-20 17:41 | PDOC.CTH ---
Cardiology Progress Note - Subjective The pt seen and examined. No overnight events. No cardiac complaints. - Objective Vital Signs Temp Pulse Resp BP BP BP BP 12/20/18 15:41 97.8 F 66 16 128/60 12/20/18 14:20 97.6 F 61 18 148/63 H 12/20/18 12:00 97.4 F L 63 20 106/53 L 12/20/18 08:00 98 F 64 22 H 142/62 H Pulse Ox 12/20/18 15:41 93 L 12/20/18 14:20 99 12/20/18 12:00 95 12/20/18 08:00 94 L Admit Weight 238 lb Weight 233 lb 8 oz 12/19/18 12/20/18 12/21/18 06:59 06:59 06:59 Intake Total 360 4510 Output Total 1200 1750 Balance -840 2760 - Physical Examination General/Neuro: alert & oriented x3 Neck: no JVD present Lungs: other: (diminished at bases) Heart: RRR Abdomen: soft Extremities: other: (2-3+ pitting BLE edema) - Telemetry Telemetry Rhythm: AV paced - Labs Result Diagrams: 12/20/18 04:44 12/20/18 04:44 Troponin/CKMB CK-MB (CK-2) 3.6 ng/mL (0-6.6) 12/18/18 15:46 Troponin I 0.233 ng/mL (< 0.028) H 12/18/18 22:24 - Assessment/Plan 1. Acute on Chronic diastolic HF - improving with Lasix 40mg IV BID and coreg; not on ROSSANA/ARB 2/2 CKD 2. Anemia - EGD and colonoscopy today and the result is pending 3. HTN - stable 4. Afib - well controlled HR with Multaq and ASA 81mg qd. 5. Hyperlipidemia - 6. DM type 2 - managed by PCP 7. CKD - no changed 8. Hx of PM placement - 9. Gout - MAR reviewed Pt. seen and eval. by me. No cardiac complaints. I agree with the A/P by the LIFESTYLE COORDINATOR except he has minimal lower extremity edema this PM. Chest clear. RRR. Continue present meds. Review of Systems - Review of Systems Constitutional: reports: no symptoms reported EENTM: reports: no symptoms reported Respiratory: reports: no symptoms reported Cardiac (ROS): reports: no symptoms reported ABD/GI: reports: no symptoms reported : reports: no symptoms reported Musculoskeletal: reports: no symptoms reported
[2018-12-20] MEDS: cloNIDine 0.1 MG TAB PO SCH (20:59)
[2018-12-21] MEDS: Furosemide 40 MG/4 ML VIAL SLOW IVP SCH (06:40)
[2018-12-21] MEDS: Allopurinol 100 MG TAB PO SCH (08:30)
[2018-12-21] MEDS: Colchicine 0.6 MG TAB PO SCH (08:30)
[2018-12-21] MEDS: Aspirin Chewable 81 MG TAB PO SCH (08:30)
[2018-12-21] MEDS: Dronedarone HCl 400 MG TAB PO SCH (08:30)
[2018-12-21] MEDS: Carvedilol 25 MG TAB PO SCH (08:31)
[2018-12-21 10:30] LABS: #Eosinphils 0.2 thou/uL (0.0-0.7); #Lymphocytes 0.7 thou/uL (1.20-3.40); #Monocytes 0.5 thou/uL (0.11-0.59); #Neutrophils 4.1 thou/uL (1.40-6.50); %Basophils 0.7 % (0.0-1.0); %Eosinophils 3.4 % (0.0-10.0); %Lymphocytes 12.9 % (21.0-51.0); %Monocytes 8.6 % (0.0-10.0); %Neutrophils 74.4 % (42.0-75.0); Hemoglobin 10.1 g/dL (14.0-18.0); Mean Corpuscular HGB CONC 32.4 g/dL (32.0-36.0); Mean Corpuscular Hemoglobin 32.2 pg (27.0-31.0); Mean Corpuscular Volume 99.2 fL (78.0-98.0); Mean Platelet Volume 8.2 fL (7.4-10.4); Platelet Count 206 thou/uL (130-400); RBC Distribution Width 13.9 % (11.5-14.5); Red Blood Cell (RBC) Count 3.13 mill/uL (4.70-6.10); White Blood Cell (WBC) Count 5.5 thou/uL (4.8-10.8)
[2018-12-21 10:47] LABS: ALT (SGPT) 48 U/L (8-55); AST (SGOT) 57 U/L (5-34); Albumin 3.8 g/dL (3.4-4.8); Alkaline Phosphatase 119 U/L (40-150); Anion Gap 14 mmol/L (10-20); BUN (Urea Nitrogen) 54 mg/dL (8.4-25.7); Bilirubin, Total 0.5 mg/dL (0.2-1.2); Calc. Creatinine Clearance 45 mL/min (70-130); Calcium 9.3 mg/dL (7.8-10.44); Carbon Dioxide 29 mmol/L (23-31); Chloride 103 mmol/L (98-107); Estimated GFR-MDRD 32; Globulin 3.3 g/dL (2.4-3.5); Glucose 156 mg/dL (83-110); Potassium 3.7 mmol/L (3.5-5.1); Protein, Total 7.1 g/dL (5.8-8.1); Sodium 142 mmol/L (136-145)
--- NOTE | 2018-12-21 11:20 | PDOC.PN ---
- Subjective Encounter Start Date: 12/20/18 Encounter Start Time: 16:00 Subjective: Patient examined, just returned from OR for EGD/colonscopy -: Denies complaints, wants to go home - Objective Resuscitation Status - Order Detail: 12/18/18 18:53 Resuscitation Status Routine Co-Sign Provider: Resuscitation Status: FULL: Full Resuscitation Vital Signs & Weight: Vital Signs (12 hours) Temp Pulse Resp BP Pulse Ox 12/21/18 08:07 98.3 F 74 16 148/72 H 95 12/21/18 04:42 98.1 F 66 20 139/59 L 96 12/20/18 23:30 98.8 F 76 12 117/53 L 96 Weight Admit Weight 107.955 kg Weight 105.279 kg I&O: 12/20/18 12/21/18 12/22/18 06:59 06:59 06:59 Intake Total 4510 1080 Output Total 1750 1200 Balance 2760 -120 Result Diagrams: 12/21/18 10:11 12/21/18 10:11 Additional Labs: Accuchecks 12/21/18 12/21/18 12/20/18 10:41 05:19 21:14 POC Glucose 174 H 133 H 152 H 12/20/18 16:47 POC Glucose 179 H Phys Exam - Physical Examination HEENT: PERRLA, moist MMs Neck: no nodes, no JVD Respiratory: clear to auscultation bilateral Cardiovascular: RRR Gastrointestinal: soft, non-tender Musculoskeletal: edema present Neurological: non-focal, normal sensation Lymphatic: no nodes Psychiatric: normal affect, A&O x 3 Skin: no rash, normal turgor Dx/Plan (1) Chronic diastolic (congestive) heart failure Code(s): I50.32 - CHRONIC DIASTOLIC (CONGESTIVE) HEART FAILURE Status: Chronic (2) Demand ischemia Code(s): I24.8 - OTHER FORMS OF ACUTE ISCHEMIC HEART DISEASE Status: Acute Plan: Elevated troponins r/t to demand ischemia - Plan cont current plan of care Will recheck labs in the morning, discussed with patient the need to -: stay at least one more night to check kidney function, breathing, H&H after -: procedure. Agrees to plan -: Will recheck labs in AM No anticoagulation indicated at this time due to anemia, hx of AV malformation of the GI tract, hx of daily alcohol use * . Review of Systems - Medications/Allergies Allergies/Adverse Reactions: Allergies Allergy/AdvReac Type Severity Reaction Status Date / Time No Known Drug Allergies Allergy Verified 12/18/18 19:44 Medications: Current Medications Acetaminophen (Tylenol) 650 mg PO Q4H PRN PRN Reason: Headache/Fever/Mild Pain (1-3) Allopurinol (Zyloprim) 100 mg PO DAILY [facility] Last Admin: 12/21/18 08:30 Dose: 100 mg Aspirin (Aspirin Chewable) 81 mg PO DAILY [facility] Last Admin: 12/21/18 08:30 Dose: 81 mg Carvedilol (Coreg) 25 mg PO BID [facility] Last Admin: 12/21/18 08:31 Dose: 25 mg Clonidine (Catapres) 0.1 mg PO HS [facility] Last Admin: 12/20/18 20:59 Dose: 0.1 mg Colchicine (Colcrys) 0.6 mg PO BID [facility] Last Admin: 12/21/18 08:30 Dose: 0.6 mg Dextrose/Water (Dextrose 50%) 25 gm SLOW IVP PRN PRN PRN Reason: Hypoglycemia Dronedarone (Multaq) 400 mg PO BID-[facility] Last Admin: 12/21/18 08:30 Dose: 400 mg Furosemide (Lasix) 40 mg SLOW IVP 0600,1400 [facility] Last Admin: 12/21/18 06:40 Dose: 40 mg Glucagon (Glucagon) 1 mg IM PRN PRN PRN Reason: Hypoglycemia Dextrose/Water (D5w) 1,000 mls @ 0 mls/hr IV .Q0M PRN PRN Reason: Hypoglycemia Insulin Human Lispro (Humalog) 0 units SC .MILD SLIDING SCALE PRN PRN Reason: Mild Correctional Scale Insulin Human Lispro (Humalog) 0 units SC .BEDTIME SLIDING SC PRN PRN Reason: Bedtime Correctional Scale Ondansetron HCl (Zofran Odt) 4 mg PO Q6H PRN PRN Reason: Nausea/Vomiting Ondansetron HCl (Zofran) 4 mg IVP Q6H PRN PRN Reason: Nausea/Vomiting Pantoprazole Sodium (Protonix) 40 mg PO DAILY [facility] Last Admin: 12/21/18 08:31 Dose: 40 mg Sodium Chloride (Flush - Normal Saline) 10 ml IVF Q12HR [facility] Last Admin: 12/21/18 12:27 Dose: Not Given Sodium Chloride (Flush - Normal Saline) 10 ml IVF PRN PRN PRN Reason: Saline Flush Last Admin: 12/21/18 06:40 Dose: 10 ml
[2018-12-21 12:18] VITALS: BP 119/54; TEMP 98
--- NOTE | 2018-12-21 13:02 | PDOC.CTH ---
Cardiology Progress Note - Subjective The pt seen and examined. No overnight events. No cardiac complaints. - Objective Vital Signs Temp Pulse Resp BP BP Pulse Ox 12/21/18 11:50 98 F 61 15 119/54 L 98 12/21/18 08:07 98.3 F 74 16 148/72 H 95 12/21/18 04:42 98.1 F 66 20 139/59 L 96 Admit Weight 238 lb Weight 232 lb 1.6 oz 12/20/18 12/21/18 12/22/18 06:59 06:59 06:59 Intake Total 4510 1080 Output Total 1750 1200 575 Balance 1220 -120 575 - Physical Examination General/Neuro: alert & oriented x3 Neck: no JVD present Lungs: CTA Heart: other: (irregular) Abdomen: soft Extremities: other: (No edema) - Telemetry Telemetry Rhythm: Afib; V paced - Labs Result Diagrams: 12/21/18 10:11 12/21/18 10:11 Troponin/CKMB CK-MB (CK-2) 3.6 ng/mL (0-6.6) 12/18/18 15:46 Troponin I 0.233 ng/mL (< 0.028) H 12/18/18 22:24 - Assessment/Plan 1. Acute on Chronic diastolic HF - stable with Lasix 40mg IV BID and coreg; not on ROSSANA/ARB 2/2 CKD 2. Anemia - EGD and colonoscopy showed no bleeding; H&H is stable 3. HTN - stable 4. Afib - well controlled HR with Multaq and ASA 81mg qd. 5. DM type 2 - managed by PCP 6. CKD - no changed 7. Hx of PM placement - 8. Gout - 9. ETOH abuse - ETOH cessation education given to the pt and family. MAR reviewed * From Cardiac standpoint, the pt is stable to d/c home. The pt will f/u with Dr Babin' office within 2 wks. Pt. seen and eval. by me. I agree with the A/P by the HOME COMFORT ADVISOR. Chest clear. RRR. Okay to d/c pt to home. Review of Systems - Review of Systems Constitutional: reports: no symptoms reported EENTM: reports: no symptoms reported Respiratory: reports: no symptoms reported Cardiac (ROS): reports: no symptoms reported ABD/GI: reports: no symptoms reported : reports: no symptoms reported Musculoskeletal: reports: no symptoms reported Skin: reports: no symptoms reported
--- NOTE | 2018-12-21 13:43 | PRG ---
DATE OF SERVICE: 12/21/2018 SUBJECTIVE: Mr. Parry is feeling better. He has had no overt GI bleeding. He has no abdominal pain. He is breathing better. OBJECTIVE: VITAL SIGNS: Temperature 98.0, pulse 61, and blood pressure 119/54. GENERAL: He is in no acute distress. Alert and oriented x3. LUNGS: Clear to auscultation bilaterally. HEART: Regular rate and rhythm without murmur. ABDOMEN: Soft, nontender, and nondistended. Bowel sounds are present. EXTREMITIES: 1+ pitting lower extremity edema. LABORATORY DATA: Hemoglobin is 10.1. Creatinine is 2.0, down from 2.26 yesterday. IMPRESSION: Symptomatic anemia. He underwent cautery of multiple arteriovenous malformations and removal of a few polyp from the colon yesterday. RECOMMENDATIONS: 1. Follow up in GI clinic in around a month to check the trend of his hemoglobin. 2. I will sign off for now. Please call if GI can be of assistance. He is anticipated to be discharged home today. Job ID: [id number]
--- NOTE | 2018-12-22 10:54 | PQF ---
BRITNEY CASTILLO [facility] PRADIP ADELAIDA FNP [id number] [address] [place] [address] [id number] CLINICAL DOCUMENTATION IMPROVEMENT CLARIFICATION FORM: ICD-10 Updated PLEASE DO AN ADDENDUM TO THE PROGRESS NOTE WITH ANY DOCUMENTATION UPDATES OR ADDITIONS AND CARRY THROUGH TO DC SUMMARY. THANK YOU. DATE: 12/22 ATTN : JENA HARGROVE Please exercise your independent, professional judgment in responding to the clarification form. Clinical indicators are provided on the bottom of this form for your review. Please check appropriate box(s): AMI TYPE: [ ] NSTEMI d/t Demand Ischemia (NV Type II) [ x ] Demand Ischemia without NV [ ] Other diagnosis [ ] Unable to determine In addition, please specify: Present on Admission (POA): [ x ] Yes [ ] No [ ] Unable to determine CLINICAL INDICATORS - SIGNS / SYMPTOMS / LABS TROPONIN I: 0.256, 0.232, 0.233 ER FINAL DIAGNOSES 12/18: ACUTE CHF EXACERBATION, ELEVATED TROPONIN H&P DOCUMENTATION (ARJUN) 12/18: ASSESSMENT & PLAN: 1) ACUTE ON CHRONIC HEART FAILURE; 2) ELEVATED TROPONIN, CURRENTLY AT INDETERMINATE 0.256. TREND TROPONINS. THIS CAN LIKELY BE 2/2 ACUTE ON CHRONIC HEART FAILURE. CARDIOLOGY CONSULT 12/19 (MINDI): LAB DATA: TROPONIN IS INDETERMINATE X2 AT 0.25, THEN 0.23 & 0.23 AGAIN RISK: ACUTE ON CHRONIC DIASTOLIC HF TREATMENT: CARDIOLOGY CONSULT IV DIURETIC (LASIX 12/19 - ) THANK YOU! Zully (This form is maintained as a part of the permanent medical record) 2014 [employer]. All Rights Reserved Zully Hyatt RN, BSN [email or web address] Office: [phone] [facility] HOSPITALMaria Teresa
== END 2018-12-21 13:43 | disposition home or self-care (01) | DRG 291 ==
LOC: ERS 15:27 → 2SW 18:48 → OBSVTOIN 12-20 13:26
PROVIDERS: ADMIT Family Medicine; ATTEND Family Medicine
PROC: 0DB68ZX Excision of Stomach, Via Natural or Artificial Opening Endoscopic, Diagnostic (ICD-10-PCS; principal; 2018-12-20)
PROC: 0D5E8ZZ Destruction of Large Intestine, Via Natural or Artificial Opening Endoscopic (ICD-10-PCS; 2018-12-20)
PROC: 0DBF8ZX Excision of Right Large Intestine, Via Natural or Artificial Opening Endoscopic, Diagnostic (ICD-10-PCS; 2018-12-20)
DX: I13.0 Hypertensive heart and chronic kidney disease with heart failure and stage 1 through stage 4 chronic kidney disease, or unspecified chronic kidney disease (principal); I50.33 Acute on chronic diastolic (congestive) heart failure; N17.9 Acute kidney failure, unspecified; I24.8 Other forms of acute ischemic heart disease; E11.22 Type 2 diabetes mellitus with diabetic chronic kidney disease; I48.0 Paroxysmal atrial fibrillation; N18.2 Chronic kidney disease, stage 2 (mild); E78.5 Hyperlipidemia, unspecified; D50.9 Iron deficiency anemia, unspecified; K29.70 Gastritis, unspecified, without bleeding; K63.5 Polyp of colon; K55.20 Angiodysplasia of colon without hemorrhage; M1A.9XX0 Chronic gout, unspecified, without tophus (tophi); F10.10 Alcohol abuse, uncomplicated; E66.9 Obesity, unspecified; Z68.32 Body mass index [BMI] 32.0-32.9, adult; Z79.82 Long term (current) use of aspirin; Z79.899 Other long term (current) drug therapy; Z95.0 Presence of cardiac pacemaker
CPT/HCPCS: 36415; 36416; 71045; 76700; 80048; 80053; 82274; 82553; 82728; 83605; 83880; 84484; 85025; 86850; 86900; 86901; 88305; 88312; 93005; 93306; 93798; 94760; 96374; J1940; J2001; J2704

== ENCOUNTER 2019-07-20 12:35 | Outpatient (CLI) | payer MEDICARE ==
--- NOTE | 2019-07-20 14:30 | MRI ---
MR the lumbar spine without contrast INDICATION: 79-year-old male with lumbar radiculopathy. COMPARISON: CT lumbar myelogram dated December 17, 2017. TECHNIQUE: Multiplanar multisequence MR images were obtained of lumbar spine without IV contrast. The examination was performed without IV contrast due to an elevated creatinine level and diminished GFR. FINDINGS: Bone marrow: There are Modic endplate degenerative changes seen at the L2-3 level. There is been inte rval postsurgical change of laminectomy is a L2-3 through L5-S1. Distal spinal cord and conus: Normal. The conus seen to terminate at L1. Visualized retroperitoneum and paraspinal soft tissues: Normal. Vertebral levels: L5-S1: There is a broad-based disc bulge with facet hypertrophy is space height inducing moderate to severe bilateral neural foraminal narrowing which is stable prior exam. L4-5 there is interval laminectomy central canal narrowing. There is residual broad-based bulge or pr otrusion is severe. This is. L3-4: There is a broad-based bulge and facet hypertrophy. There are laminectomy changes. There is mod erate bilateral neural foraminal narrowing is stable. Degree of central canal narrowing is improved from the prior exam. L2-3: There is a broad-based disc osteophyte complex with facet hypertrophy is [id number] bilat eral neural foraminal narrowing is stable. There is improvement in the central canal narrowing seen level. L1-L2: There is a mild broad-based disc bulge at L1-L2 without appreciable central canal or neural fo raminal narrowing. T12-L1: No appreciable central canal or neuroforaminal narrowing. IMPRESSION: 1. Interval laminectomy of L2-3 through L5-S1 with improvement in the central canal narrowing. 2. Multilevel neural foraminal narrowing is stable.
--- NOTE | 2019-07-20 15:32 | RAD ---
LUMBAR SPINE BENDING, MINIMAL FOUR VIEW: 07/20/19 HISTORY: Low back pain. Lumbar radiculopathy. COMPARISON: MRI same day. FINDINGS: Laminectomy changes lower lumbar spine. Severe degenerative disc space height loss L2-3. There is no acute fracture. 3 mm L2 over L3 retrolisthesis without significant translation with flex ion or extension. Multiple bridging osteophytes. Dense calcifications of the aorta. IMPRESSION: Advanced degenerative disease. No significant translation with flexion or extension. POS: [facility]
== END 2019-07-20 12:36 | disposition home or self-care (01) ==
LOC: MRI 12:35
PROVIDERS: ATTEND Physician Assistant Surgical
DX: M51.16 Intervertebral disc disorders with radiculopathy, lumbar region (principal); M48.061 Spinal stenosis, lumbar region without neurogenic claudication; Z98.890 Other specified postprocedural states
CPT/HCPCS: 72120; 72148; 72158; 82565

== ENCOUNTER 2020-06-19 11:25 | Outpatient (CLI) | payer MEDICARE ==
--- NOTE | 2020-06-19 20:54 | MRI ---
MRI LUMBAR SPINE WITHOUT CONTRAST: Date: 06/19/2020 INDICATINO: Lumbar radiculopathy. Comparison made to MRI lumbar spine dated 07/20/2019. FINDINGS: Moderate to severe degenerative changes are seen throughout the lumbar spine. Loss of disc space is p ronounced at L1-2, L2-3, and L3-4. There is a posterolisthesis at L2-3 and a mild posterolisthesis at L1-2. These findings do not appear significantly changed from 07/20/2019. L1-2: Broad based disc bulge flattens the thecal sac. There is facet arthrosis and hypertrophy. No s ignificant central canal or foraminal stenosis. There is a disc osteophyte complex projecting to the right. Findings are stable from prior study. L2-3: Posterolisthesis. Broad based disc bulge flattening the thecal sac. Facet arthrosis. Mild cent ral canal stenosis. There is severe left foraminal stenosis. Moderate right foraminal stenosis. Poste rior laminectomy change. L3-4: Broad based disc bulge. Posterior laminectomy change. No significant central canal stenosis. B ilateral foraminal stenosis. L4-5: Posterior laminectomy change. Moderate facet hypertrophy. Mild disc bulge. Mild central canal stenosis. Bilateral foraminal stenosis. L5-S1: Posterior laminectomy change. Facet hypertrophy. No significant central canal stenosis. Bilat eral foraminal stenosis. IMPRESSION: There are postoperative and degenerative changes of the lumbar spine which appear stable from 019. Significant foraminal stenosis seen at multiple levels as described above. POS: [facility]
== END 2020-06-19 11:26 | disposition home or self-care (01) ==
LOC: MRI 11:25
PROVIDERS: ATTEND Surgery
DX: M47.26 Other spondylosis with radiculopathy, lumbar region (principal); M48.062 Spinal stenosis, lumbar region with neurogenic claudication; Z98.890 Other specified postprocedural states
CPT/HCPCS: 72148

== ENCOUNTER 2020-08-23 07:28 | Outpatient (CLI) | payer MEDICARE, OTHER ==
[2020-08-23 11:53] LABS: Hemoglobin 13.1 g/dL (14.0-18.0); Mean Corpuscular HGB CONC 32.4 G/DL (32.0-36.0); Mean Corpuscular Volume 98.5 fl (80.0-100.0); Platelet Count 168 10x3/uL (130-400); RBC Distribution Width 12.8 % (11.5-14.5); White Blood Cell (WBC) Count 7.7 10x3/uL (4.5-11.0)
[2020-08-23 12:13] LABS: INR-International Normal Ratio 1.1; PTT 29.5 sec (22.0-33.0); Prothrombin Time 11.1 sec (9.5-12.1)
[2020-08-23 13:07] LABS: Anion Gap 17 mmol/L (10-20); BUN (Urea Nitrogen) 37 mg/dL (8.4-25.7); Calc. Creatinine Clearance 0 mL/min (70-130); Calcium 8.9 mg/dL (7.8-10.44); Carbon Dioxide 26 mmol/L (23-31); Chloride 100 mmol/L (98-107); Estimated GFR-MDRD 40; Glucose 177 mg/dL (83-110); Potassium 4.7 mmol/L (3.5-5.1); Sodium 138 mmol/L (136-145)
[2020-08-23 18:15] LABS: SARS-CoV-2 MS2 Positive; SARS-CoV-2 N Gene Negative; SARS-CoV-2 S Gene Negative; SARS-CoV-2 by NAA Not Detected (NotDetected); SARS-CoV-2 orf1ab Negative
== END 2020-08-23 07:29 | disposition home or self-care (01) ==
LOC: LABBT 07:28
PROVIDERS: ATTEND Surgery
DX: Z01.818 Encounter for other preprocedural examination (principal); Z20.828 Contact with and (suspected) exposure to other viral communicable diseases; M51.16 Intervertebral disc disorders with radiculopathy, lumbar region; M48.062 Spinal stenosis, lumbar region with neurogenic claudication
CPT/HCPCS: 80048; 85027; 85610; 85730; 93005; U0003; 87635; 93010

== ENCOUNTER 2020-08-28 08:15 | Day surgery (SDC) | payer MEDICARE ==
[2020-08-28] MEDS ORDERED: Thrombin 5000 UNITS/5 ML VIAL ONE (09:54)
[2020-08-28] MEDS ORDERED: Fentanyl 100 MCG/2 ML VIAL ONE ×3 (09:57→14:20)
[2020-08-28] MEDS ORDERED: Phenylephrine 10 MG/ML VIAL ONE (09:59)
[2020-08-28] MEDS ORDERED: Lidocaine 1% PF 5 ML VIAL ONE (12:28)
[2020-08-28] MEDS ORDERED: Glycopyrrolate 0.2 MG/ML 5 ML SYRINGE ONE (12:28)
[2020-08-28] MEDS ORDERED: PROPOFOL 200 MG/20 ML VIAL ONE (12:28)
[2020-08-28] MEDS ORDERED: PHENYLEPHRINE-NS 100 MCG/ML 10 ML SYRINGE ONE (12:28)
[2020-08-28] MEDS ORDERED: Ondansetron PF 4 MG/2 ML Vial ONE (12:28)
[2020-08-28] MEDS ORDERED: Rocuronium Bromide 10 MG/ML (10ML VIAL) ONE (12:28)
[2020-08-28] MEDS ORDERED: Promethazine HCl 25 MG/ML VIAL IM PRN (12:41)
[2020-08-28] MEDS ORDERED: Promethazine HCl 25 MG/ML VIAL SLOW IVP PRN (12:41)
[2020-08-28] MEDS ORDERED: Ondansetron HCl/PF 4 MG/2 ML Vial IVP PRN (12:41)
[2020-08-28] MEDS ORDERED: Milk Of Magnesia 30 ML UDCUP PO PRN (12:57)
[2020-08-28] MEDS ORDERED: traMADol HCl 50 MG TAB PO PRN (12:57)
[2020-08-28] MEDS ORDERED: Bisacodyl 10 MG SUPP PR PRN (12:57)
[2020-08-28] MEDS ORDERED: Morphine 2 MG/ML VIAL SLOW IVP PRN (12:57)
[2020-08-28] MEDS ORDERED: Ondansetron PF 4 MG/2 ML Vial IVP PRN (12:57)
[2020-08-28] MEDS ORDERED: Acetaminophen 325 MG TAB PO PRN (12:57)
[2020-08-28] MEDS ORDERED: CEFAZOLIN 2 GM in Premix Bag 1 BAG IVPB SCH (18:00)
[2020-08-28] MEDS: cloNIDine 0.1 MG TAB PO SCH (20:59)
[2020-08-28] MEDS: Tamsulosin HCl 0.4 MG CAP PO SCH (20:59)
[2020-08-28] MEDS: Carvedilol 25 MG TAB PO SCH (20:59)
[2020-08-28] MEDS: Sodium Chloride 0.9% 1,000 ML IV SCH (21:00)
[2020-08-28 21:14] VITALS: BMI 34.6
[2020-08-28] MEDS: tiZANidine HCl 4 MG TAB PO PRN (22:01)
[2020-08-29] MEDS: Sodium Chloride 0.9% 1,000 ML IV SCH ×2 (01:22→14:21)
[2020-08-29] MEDS ORDERED: CEFAZOLIN 2 GM in Premix Bag 1 BAG IVPB SCH (05:00)
--- NOTE | 2020-08-29 05:28 | OP ---
DATE OF PROCEDURE: 08/28/2020 LOCATION: OR 11. INFECTIOUS DISEASE TECHNICIAN: Rissa De Dios PA-C. PREPROCEDURE DIAGNOSES: Recurrent L5 radiculopathy bilaterally with foraminal stenosis bilaterally at L5-S1 and compression of the traversing S1 nerve roots. PROCEDURES PERFORMED: 1. Bilateral L4-L5 revision hemilaminotomies and foraminotomies. 2. L5-S1 laminectomy, partial facetectomy, foraminotomy. 3. Right L5-S1 trans-facet diskectomy, use of the operative microscope for microdissection with right L5-S1 disk space exploration. DESCRIPTION OF PROCEDURE: After informed consent was obtained from the patient, the patient was brought to the OR. Proper patient, pause, and identification were carried out. He was placed under excellent general endotracheal anesthesia and positioned prone on the OR table. All appropriate points were padded. We identified the midline linear tigre from his prior wound that would allow for approach to the L4-L5, and extended this just a bit to L5-S1. This region was sterilely cleansed, prepared, and draped. Proper patient, pause, and identification were carried out. The wound was then opened with combination of sharp, monopolar, and blunt dissection. The scarred region of L4-L5 was identified bilaterally. Localization film confirmed our area of interest. We then performed bilateral L4-L5 revision hemilaminotomies and foraminotomies. A small amount of arachnoid and thin dura were identified in the region of the left L4 root, but there was no spinal fluid leak. DuraSeal was placed over this area at the conclusion. Then at L5-S1, performed a laminectomy, partial facetectomy, and foraminotomy. We then identified the common dural tube and I followed the left L5 nerve root out into its foramen. I did not identify any obvious disk extrusion that was compressive at this point. I then assured freedom of the left S1 nerve root. I did not think it was necessary to do a left L5-S1 trans-facet approach, given the fact that I was not convinced there was disk material in the L5 foramen. I then turned attention to a right L5-S1 paracentral diskectomy. The disk was quite calcified. I followed the nerve root out to a trans-facet approach on the right side, however, I completely skeletonized the right L5 nerve root to assure freedom of any encroachment on the right L5 nerve root. While some disk material was identified, it was very osteophytic and really it did not appear to need to be moved after the trans-facet approach indirectly decompressing the root. Copious irrigation occurred throughout as did maximizing hemostasis. The wound was then closed in anatomic layers following sprinkling of vancomycin powder. The patient then emerged from anesthesia. Job ID: [id number]
[2020-08-29] MEDS: Acetaminophen/Codeine 30-300mg Tablet PO PRN ×2 (06:10→09:23)
--- NOTE | 2020-08-29 08:52 | PRG ---
DATE OF SERVICE: 08/29/2020 Mr. Parry is doing well, postoperative day 1 from L4 through S1 decompression and diskectomy. He has had some urinary retention. We will work on this as he required one in-and-out catheterization. He does feel as if his leg pain is better. He has had sanguinous drainage from his wound. We will plan to continue to keep the wound dressed, and if he goes home today with the sanguinous drainage, I would like to make sure it stays covered and he goes home with a 2-week course of antibiotics. Job ID: [id number]
[2020-08-29] MEDS ORDERED: Alogliptin 6.25 MG TAB PO SCH (09:00)
[2020-08-29] MEDS ORDERED: Calcium Carb, Cit/Magnesium Ox [Calmag Thins] 200 MG/50 MG Tab PO SCH (09:00)
[2020-08-29] MEDS: Ferrous Sulfate 325 MG TAB PO SCH (09:20)
[2020-08-29] MEDS: Furosemide 80 MG TAB PO SCH (09:20)
[2020-08-29] MEDS: Multivitamin W/ Minerals 1 TAB PO SCH (09:21)
[2020-08-29] MEDS: Potassium Chloride 10 MEQ TAB PO SCH (09:21)
[2020-08-29] MEDS: Amlodipine 5 MG TAB PO SCH (09:21)
[2020-08-29] MEDS: Lisinopril 10 MG TAB PO SCH (09:21)
[2020-08-29] MEDS: Colchicine 0.6 MG TAB PO SCH (09:22)
[2020-08-29] MEDS: Allopurinol 100 MG TAB PO SCH (09:22)
[2020-08-29] MEDS: Carvedilol 25 MG TAB PO SCH ×2 (09:22→20:11)
[2020-08-29] MEDS: tiZANidine HCl 4 MG TAB PO PRN ×2 (12:28→20:12)
[2020-08-29] MEDS: cloNIDine 0.1 MG TAB PO SCH (20:10)
[2020-08-29] MEDS: Tamsulosin HCl 0.4 MG CAP PO SCH (20:11)
[2020-08-29] MEDS: HYDROcodone/Acetaminophen 7.5/325 mg Tablet PO PRN (20:11)
[2020-08-30] MEDS: Sodium Chloride 0.9% 1,000 ML IV SCH (05:48)
[2020-08-30] MEDS: HYDROcodone/Acetaminophen 7.5/325 mg Tablet PO PRN ×2 (06:11→12:47)
[2020-08-30] MEDS: Furosemide 80 MG TAB PO SCH (06:28)
[2020-08-30] MEDS: Colchicine 0.6 MG TAB PO SCH (09:24)
[2020-08-30] MEDS: Lisinopril 10 MG TAB PO SCH (09:24)
[2020-08-30] MEDS: Carvedilol 25 MG TAB PO SCH (09:25)
[2020-08-30] MEDS: Potassium Chloride 10 MEQ TAB PO SCH (09:25)
[2020-08-30] MEDS: Amlodipine 5 MG TAB PO SCH (09:27)
[2020-08-30] MEDS: Multivitamin W/ Minerals 1 TAB PO SCH (09:28)
[2020-08-30] MEDS: Allopurinol 100 MG TAB PO SCH (09:28)
[2020-08-30] MEDS: Ferrous Sulfate 325 MG TAB PO SCH (09:29)
--- NOTE | 2020-08-30 10:22 | PRG ---
DATE OF SERVICE: 08/30/2020 Mr. Parry is doing well from a low back and leg pain standpoint. He is mobilizing. He has good strength in his lower extremities. The biggest issue has been urinary retention. He has voided at times, but at times is required in and out catheterization. The postvoid residuals have been inconsistent in regard to the readings. I let the patient know that this morning if he does not have return of his spontaneous voiding, we will place an indwelling Fisher catheter. He will follow up with his urologist and will be discharged today. Job ID: [id number]
[2020-08-30 11:11] VITALS: BP 132/74; TEMP 98
== END 2020-08-30 13:21 | disposition home or self-care (01) ==
LOC: SDC 08:15 → SURG A 13:04 → SDC 08-30 13:21
PROVIDERS: ATTEND Surgery
PROC: 01NB0ZZ Release Lumbar Nerve, Open Approach (ICD-10-PCS; principal; 2020-08-28)
PROC: 01NB0ZZ Release Lumbar Nerve, Open Approach (ICD-10-PCS; 2020-08-28)
DX: M48.061 Spinal stenosis, lumbar region without neurogenic claudication (principal); M51.16 Intervertebral disc disorders with radiculopathy, lumbar region; R33.9 Retention of urine, unspecified; Z79.82 Long term (current) use of aspirin; Z79.84 Long term (current) use of oral hypoglycemic drugs; Z79.899 Other long term (current) drug therapy; Z95.0 Presence of cardiac pacemaker
CPT/HCPCS: 76000; J0690; J2370; J2405; J2704; J3010; J3370

== ENCOUNTER 2021-12-31 12:26 | Outpatient (CLI) | payer MEDICARE | END 2021-12-31 12:27 | disposition home or self-care (01) | LOC: MRI 12:26 | PROVIDERS: ATTEND Surgery | DX: M54.50 Low back pain, unspecified (principal); M47.816 Spondylosis without myelopathy or radiculopathy, lumbar region; M48.061 Spinal stenosis, lumbar region without neurogenic claudication | CPT/HCPCS: 72120; 72148 ==

== ENCOUNTER 2022-05-02 12:55 | Outpatient (CLI) | payer MEDICARE | END 2022-05-02 12:56 | disposition home or self-care (01) | LOC: LABBT 12:55 | PROVIDERS: ATTEND Anesthesiology Pain Medicine | DX: Z20.822 Contact with and (suspected) exposure to COVID-19 (principal) | CPT/HCPCS: 87811 ==

== ENCOUNTER 2022-05-07 06:49 | Day surgery (SDC) | payer MEDICARE ==
[2022-05-06 09:12] VITALS: BMI 33.7
[2022-05-07] MEDS ORDERED: Lidocaine 2% PF 5 ML VIAL ONE ×2 (07:26→07:27)
[2022-05-07] MEDS ORDERED: EPINEPHrine 1 MG/ML AMP ONE (07:26)
[2022-05-07] MEDS ORDERED: Bupivacaine 0.25% HCL 30 ML VIAL ONE (07:26)
[2022-05-07] MEDS ORDERED: Ketamine 50 MG/ML (10ML VIAL) ONE (07:50)
[2022-05-07] MEDS ORDERED: fentaNYL Citrate/PF 100 MCG/2 ML SYRINGE ONE (07:50)
[2022-05-07] MEDS ORDERED: Midazolam HCl 2 mg/2 ml Vial ONE (07:50)
[2022-05-07] MEDS ORDERED: Propofol 1,000 MG/100 ML VIAL IV ONE (07:51)
[2022-05-07] MEDS ORDERED: Dexmedetomidine 200 MCG/2 ML VIAL ONE (07:51)
[2022-05-07 08:13] LABS: Hemoglobin 11.1 g/dL (14.0-18.0); Mean Corpuscular HGB CONC 31.3 g/dL (32.0-36.0); Mean Platelet Volume 8.6 fL (7.4-10.4); Platelet Count 140 thou/uL (130-400); RBC Distribution Width 14.2 % (11.5-14.5); Red Blood Cell (RBC) Count 3.47 mill/uL (4.70-6.10); White Blood Cell (WBC) Count 5.6 thou/uL (4.8-10.8)
[2022-05-07] MEDS ORDERED: Sodium Chloride 0.9% 100 ML ONE (08:42)
[2022-05-07] MEDS ORDERED: CEFAZOLIN 1 GM VIAL ONE (08:42)
[2022-05-07] MEDS ORDERED: PROPOFOL 200 MG/20 ML VIAL ONE (09:29)
[2022-05-07] MEDS ORDERED: Lidocaine 1% PF 5 ML VIAL ONE (09:29)
[2022-05-07] MEDS ORDERED: Ondansetron PF 4 MG/2 ML Vial ONE (09:29)
== END 2022-05-07 11:25 | disposition home or self-care (01) ==
LOC: SDC 06:49
PROVIDERS: ATTEND Anesthesiology Pain Medicine
PROC: 0JH70DZ Insertion of Multiple Array Stimulator Generator into Back Subcutaneous Tissue and Fascia, Open Approach (ICD-10-PCS; principal; 2022-05-07)
PROC: 00HU3MZ Insertion of Neurostimulator Lead into Spinal Canal, Percutaneous Approach (ICD-10-PCS; 2022-05-07)
DX: G89.4 Chronic pain syndrome (principal); I10 Essential (primary) hypertension; E11.9 Type 2 diabetes mellitus without complications; M19.90 Unspecified osteoarthritis, unspecified site; Z79.82 Long term (current) use of aspirin; Z79.84 Long term (current) use of oral hypoglycemic drugs; Z79.899 Other long term (current) drug therapy
CPT/HCPCS: 63650 ×2; 63685; 72020; 76000; 85027; 93005; C1778; C1787 ×2; C1820; L8689; 36415; 93010; J0171; J0690; J2001; J2250; J2405; J2704; J3490; S0020

== ENCOUNTER 2022-10-30 10:39 | Outpatient (CLI) | payer MEDICARE | END 2022-10-30 10:40 | disposition home or self-care (01) | LOC: CT 10:39 | PROVIDERS: ATTEND Physician Assistant Medical | DX: N18.9 Chronic kidney disease, unspecified (principal); R16.2 Hepatomegaly with splenomegaly, not elsewhere classified; R14.0 Abdominal distension (gaseous); J90 Pleural effusion, not elsewhere classified; N28.9 Disorder of kidney and ureter, unspecified; E27.8 Other specified disorders of adrenal gland; K57.30 Diverticulosis of large intestine without perforation or abscess without bleeding; I51.7 Cardiomegaly; I70.90 Unspecified atherosclerosis | CPT/HCPCS: 74176 ==

== ENCOUNTER 2023-01-26 05:51 | Day surgery (SDC) | payer MEDICARE ==
[2023-01-23 12:47] VITALS: BMI 32.7
[2023-01-26] MEDS ORDERED: Phenylephrine 10 MG/ML VIAL ONE (07:20)
[2023-01-26] MEDS ORDERED: PROPOFOL 200 MG/20 ML VIAL ONE (07:20)
[2023-01-26] MEDS ORDERED: Lidocaine 1% PF 5 ML VIAL ONE (07:20)
== END 2023-01-26 10:09 | disposition home or self-care (01) ==
LOC: SDC 05:51
PROVIDERS: ATTEND Internal Medicine Gastroenterology
PROC: 0DB98ZX Excision of Duodenum, Via Natural or Artificial Opening Endoscopic, Diagnostic (ICD-10-PCS; principal; 2023-01-26)
PROC: 0DB78ZX Excision of Stomach, Pylorus, Via Natural or Artificial Opening Endoscopic, Diagnostic (ICD-10-PCS; 2023-01-26)
PROC: 0W3P8ZZ Control Bleeding in Gastrointestinal Tract, Via Natural or Artificial Opening Endoscopic (ICD-10-PCS; 2023-01-26)
DX: K55.21 Angiodysplasia of colon with hemorrhage (principal); K29.80 Duodenitis without bleeding; K31.9 Disease of stomach and duodenum, unspecified; K57.30 Diverticulosis of large intestine without perforation or abscess without bleeding; D50.9 Iron deficiency anemia, unspecified; K21.9 Gastro-esophageal reflux disease without esophagitis; K59.00 Constipation, unspecified; I12.9 Hypertensive chronic kidney disease with stage 1 through stage 4 chronic kidney disease, or unspecified chronic kidney disease; E11.22 Type 2 diabetes mellitus with diabetic chronic kidney disease; N18.9 Chronic kidney disease, unspecified; Z95.0 Presence of cardiac pacemaker; Z79.84 Long term (current) use of oral hypoglycemic drugs; Z79.82 Long term (current) use of aspirin; Z86.010 Personal history of colon polyps; Z79.899 Other long term (current) drug therapy
CPT/HCPCS: 88305; J2370; J2704

== ENCOUNTER 2023-11-14 09:42 | Inpatient (IN) | payer MEDICARE ==
[2023-11-14 10:55] LABS: #Eosinphils 0.1 thou/uL (0.0-0.7); #Monocytes 0.6 thou/uL (0.11-0.59); #Neutrophils 5.7 thou/uL (1.40-6.50); %Basophils 0.5 % (0.0-1.0); %Eosinophils 1.2 % (0.0-10.0); %Lymphocytes 2.6 % (21.0-51.0); %Monocytes 8.4 % (0.0-10.0); %Neutrophils 86.8 % (42.0-75.0); Hemoglobin 11.3 g/dL (14.0-18.0); Mean Corpuscular HGB CONC 30.5 g/dL (32.0-36.0); Mean Corpuscular Hemoglobin 28.1 pg (27.0-31.0); Mean Platelet Volume 11.9 fL (7.4-10.4); Platelet Count 239 10x3/uL (130-400); RBC Distribution Width 17.5 % (11.5-14.5); Red Blood Cell (RBC) Count 4.02 mill/uL (4.70-6.10); White Blood Cell (WBC) Count 6.6 10x3/uL (4.8-10.8)
[2023-11-14 11:19] LABS: ALT (SGPT) 18 U/L (8-55); AST (SGOT) 26 U/L (5-34); Albumin 3.7 g/dL (3.4-4.8); Alkaline Phosphatase 71 U/L (40-110); Anion Gap 21 mmol/L (10-20); Bilirubin, Total 1.7 mg/dL (0.2-1.2); Calc. Creatinine Clearance 0 mL/min (70-130); Calcium 9.2 mg/dL (7.8-10.44); Carbon Dioxide 30 mmol/L (23-31); Chloride 94 mmol/L (98-107); Estimated GFR 13; Globulin 3.1 g/dL (2.4-3.5); Glucose 168 mg/dL (83-110); Lipase 68 U/L (8-78); Potassium 3.5 mmol/L (3.5-5.1); Protein, Total 6.8 g/dL (5.8-8.1); Sodium 141 mmol/L (136-145)
[2023-11-14 11:30] LABS: BUN (Urea Nitrogen) 155 mg/dL (8.4-25.7)
[2023-11-14 11:41] LABS: Bacteria/HPF None Seen HPF (None Seen); Bilirubin Negative (Negative); Blood, Urine Negative (Negative); CAUTI Indications for Culture Alt mental st,lethar; Clarity Clear (Clear); Glucose, Urine (Dipstick) Normal (Negative); Ketone, Urine Negative (Negative); Leukocyte Negative Leu/uL (Negative); Nitrite Negative (Negative); Protein, Urine (Dipstick) Negative (Neg-Trace); RBC/HPF 0-3 HPF (0-3); Specific Gravity, Urine 1.014 (1.002-1.036); Squamous Epithelial None Seen HPF (0-3); Urobilinogen Normal mg/dL (Less than 2); WBC/HPF None Seen HPF (0-3)
[2023-11-14 11:44] LABS: Urine Culture Reflex No No
[2023-11-14 12:07] LABS: INR-International Normal Ratio 1.4; PTT 39.5 sec (22.9-36.1); Prothrombin Time 17.6 sec (12.0-14.7)
[2023-11-14 12:11] LABS: Critical Call Chem Troponin I NUR.JAN@1209; Troponin I 2.172 ng/mL (< 0.028)
[2023-11-14] MEDS ORDERED: Ondansetron PF 4 MG/2 ML Vial IVP PRN (13:19)
[2023-11-14] MEDS ORDERED: Acetaminophen 325 MG TAB PO PRN (13:19)
[2023-11-14] MEDS ORDERED: Octreotide Acetate 100 MCG in Sodium Chloride 0.9% 50 ML IVPB SCH (14:00)
[2023-11-14 14:05] LABS: INR-International Normal Ratio 1.4; PTT 41.9 sec (22.9-36.1); Prothrombin Time 17.5 sec (12.0-14.7)
[2023-11-14] MEDS ORDERED: Aspirin Chewable 81 MG TAB ONE (14:23)
[2023-11-14] MEDS ORDERED: Pantoprazole 40 MG VIAL IVP SCH (14:30)
[2023-11-14] MEDS ORDERED: Heparin 5,000 UNITS/ML VIAL SC SCH (15:00)
[2023-11-14] MEDS ORDERED: Pantoprazole 40 MG VIAL ONE (15:33)
[2023-11-14] MEDS ORDERED: Heparin 5,000 UNITS/ML VIAL ONE (15:33)
[2023-11-14] MEDS ORDERED: Octreotide Acetate 100 MCG/ML VIAL ONE (15:34)
[2023-11-14] MEDS: Octreotide Acetate 100 MCG/ML VIAL SC SCH ×2 (15:58→23:32)
[2023-11-14] MEDS: Albumin 25% 25 GM (100 mL) BOT IVPB SCH ×2 (15:58→22:22)
[2023-11-14] MEDS: Midodrine HCl 5 MG TAB PO SCH ×2 (15:59→22:22)
[2023-11-14 18:33] LABS: Critical Call Chem Troponin I RESULT DECREASING
[2023-11-14 19:43] VITALS: BMI 30.4
[2023-11-14] MEDS: Famotidine/PF 20 mg/2ml Vial SLOW IVP SCH (22:22)
[2023-11-15] MEDS: HYDROcodone/Acetaminophen 5/325 mg Tablet PO PRN ×2 (02:46→15:00)
[2023-11-15] MEDS: Albumin 25% 25 GM (100 mL) BOT IVPB SCH ×2 (02:47→08:42)
[2023-11-15 06:47] LABS: #Monocytes 0.4 thou/uL (0.11-0.59); %Basophils 0.1 % (0.0-1.0); %Eosinophils 0.2 % (0.0-10.0); %Lymphocytes 1.5 % (21.0-51.0); %Monocytes 4.6 % (0.0-10.0); %Neutrophils 93.4 % (42.0-75.0); Hematocrit 34.7 % (42.0-52.0); Hemoglobin 10.3 g/dL (14.0-18.0); Mean Corpuscular HGB CONC 29.7 g/dL (32.0-36.0); Mean Corpuscular Hemoglobin 27.8 pg (27.0-31.0); Mean Corpuscular Volume 93.8 fl (78.0-98.0); Platelet Count 148 10x3/uL (130-400); White Blood Cell (WBC) Count 8.5 10x3/uL (4.8-10.8)
[2023-11-15 07:14] LABS: Anion Gap 22 mmol/L (10-20); Calc. Creatinine Clearance 17 mL/min (70-130); Calcium 9.3 mg/dL (7.8-10.44); Carbon Dioxide 27 mmol/L (23-31); Chloride 95 mmol/L (98-107); Estimated GFR 12; Glucose 149 mg/dL (83-110); Potassium 3.2 mmol/L (3.5-5.1); Sodium 141 mmol/L (136-145)
[2023-11-15 07:25] LABS: BUN (Urea Nitrogen) 160 mg/dL (8.4-25.7)
[2023-11-15] MEDS: Famotidine/PF 20 mg/2ml Vial SLOW IVP SCH (08:42)
[2023-11-15] MEDS: Midodrine HCl 5 MG TAB PO SCH ×3 (08:42→19:31)
[2023-11-15] MEDS: Octreotide Acetate 100 MCG/ML VIAL SC SCH ×3 (08:42→22:24)
[2023-11-15] MEDS: Pantoprazole 40 MG VIAL IVP SCH (08:42)
[2023-11-15 15:39] LABS: Hep C IgG Ab Non-Reactive S/CO (NonReactive); Hep C Index 0.05 S/CO (0-0.79)
[2023-11-15] MEDS ORDERED: Potassium Chloride 20 MEQ TAB PO SCH (15:45)
[2023-11-15 17:09] LABS: HBCM Index 0.06 S/CO (0-0.79); HBSAg Index 0.31 S/CO (0-0.99); Hep A IgM AB Non-Reactive S/CO (NonReactive); Hep A IgM S/CO 0.38 S/CO (0-0.79); Hep B Surf Ag Non-Reactive S/CO (NonReactive); Hep C IgG Ab Non-Reactive S/CO (NonReactive); Hep C Index 0.03 S/CO (0-0.79); Hepatitis B Core IgM Abs Non-Reactive S/CO (NonReactive)
[2023-11-15] MEDS ORDERED: FLU VACC QS2023(65UP)/MF59C/PF 60 MCG/0.5 ML SYRINGE IM ONE (19:30)
[2023-11-15] MEDS ORDERED: Albumin 25% 25 GM (100 mL) BOT IVPB SCH (21:00)
[2023-11-15] MEDS ORDERED: Midodrine HCl 5 MG TAB PO SCH (21:00)
[2023-11-15 22:46] LABS: #Monocytes 0.4 thou/uL (0.11-0.59); %Basophils 0.1 % (0.0-1.0); %Eosinophils 0.4 % (0.0-10.0); %Lymphocytes 1.9 % (21.0-51.0); %Monocytes 5.7 % (0.0-10.0); %Neutrophils 91.4 % (42.0-75.0); Hematocrit 33.6 % (42.0-52.0); Hemoglobin 10.1 g/dL (14.0-18.0); Mean Corpuscular HGB CONC 30.1 g/dL (32.0-36.0); Mean Corpuscular Volume 93.1 fl (78.0-98.0); Mean Platelet Volume 11.6 fL (7.4-10.4); Platelet Count 138 10x3/uL (130-400); RBC Distribution Width 17.2 % (11.5-14.5); Red Blood Cell (RBC) Count 3.61 mill/uL (4.70-6.10); White Blood Cell (WBC) Count 7.7 10x3/uL (4.8-10.8)
[2023-11-15 23:11] LABS: ALT (SGPT) 14 U/L (8-55); AST (SGOT) 20 U/L (5-34); Albumin 4.2 g/dL (3.4-4.8); Alkaline Phosphatase 56 U/L (40-110); Anion Gap 23 mmol/L (10-20); Bilirubin, Total 2.3 mg/dL (0.2-1.2); Calc. Creatinine Clearance 15 mL/min (70-130); Calcium 9.1 mg/dL (7.8-10.44); Carbon Dioxide 25 mmol/L (23-31); Chloride 94 mmol/L (98-107); Estimated GFR 10; Globulin 2.5 g/dL (2.4-3.5); Glucose 159 mg/dL (83-110); Potassium 3.7 mmol/L (3.5-5.1); Protein, Total 6.7 g/dL (5.8-8.1); Sodium 138 mmol/L (136-145)
[2023-11-15 23:22] LABS: BUN (Urea Nitrogen) 167 mg/dL (8.4-25.7)
[2023-11-15 23:33] LABS: Critical Call Chem Troponin I NUR.CG9 @2332; Troponin I 2.848 ng/mL (< 0.028)
[2023-11-16] MEDS: Pantoprazole 40 MG VIAL IVP SCH (08:04)
[2023-11-16] MEDS: Octreotide Acetate 100 MCG/ML VIAL SC SCH ×3 (08:04→23:45)
[2023-11-16] MEDS: Midodrine HCl 5 MG TAB PO SCH ×3 (08:05→21:40)
[2023-11-16] MEDS ORDERED: Famotidine/PF 20 mg/2ml Vial SLOW IVP SCH ×2 (09:00)
[2023-11-16] MEDS ORDERED: Lidocaine 1% PF 5 ML VIAL ONE (10:10)
[2023-11-16] MEDS ORDERED: Sodium Bicarbonate 0.5 MEQ/ML SDV 10 ML ONE (10:10)
[2023-11-16 14:12] LABS: Iron 27 ug/dL (65-175); Iron Binding Capacity, Total 234 mcg/dL (261-462)
[2023-11-16 14:13] LABS: Ferritin 629.24 ng/mL (22-322)
[2023-11-16 14:25] LABS: HBSAB Concentration Less than 8.00 mIU/mL; HBSAg Index 0.24 S/CO (0-0.99); Hep B Core Total Ab Non-Reactive (NonReactive); Hep B Core Total Index 0.08 S/CO (0-0.79); Hep B Surf AB Non-Reactive (NonReactive); Hep B Surf Ag Non-Reactive S/CO (NonReactive)
[2023-11-16 14:53] LABS: RBC Count-Automated (BF) 16578 /cu.mm; WBC/Nucleated-Auto (BF) 10168 /cu.mm
[2023-11-16] MEDS: Nystatin Cream 30 GM TUBE TOP SCH ×2 (15:03→21:40)
[2023-11-16 15:16] LABS: Body Fluid Source Ascites Body Fluid; Clarity Cloudy/Turbid (Clear)
[2023-11-16 15:28] LABS: BF Segmented Neutrophils 82 %; Cell Count Non Hematic 9 %; Lymphocytes 9 %
[2023-11-16 15:50] LABS: Anion Gap 34 mmol/L (10-20); Calc. Creatinine Clearance 13 mL/min (70-130); Calcium 9.2 mg/dL (7.8-10.44); Carbon Dioxide 14 mmol/L (23-31); Chloride 97 mmol/L (98-107); Estimated GFR 8; Glucose 155 mg/dL (83-110); Potassium 4.8 mmol/L (3.5-5.1); Sodium 140 mmol/L (136-145)
[2023-11-16 16:00] LABS: Immunoglob - G (Total IgG) 887 mg/dL (Not Available); Immunoglob - M (Total IgM) 52 mg/dL (22-240)
[2023-11-16 16:04] LABS: BUN (Urea Nitrogen) 188 mg/dL (8.4-25.7)
[2023-11-16] MEDS: cefTRIAXone\\ROCEPHIN 2 GM in Sodium Chloride 0.9% 100 ML IVPB SCH (17:47)
[2023-11-17] MEDS ORDERED: Melatonin 3 MG TAB PO PRN (02:42)
[2023-11-17] MEDS: Octreotide Acetate 100 MCG/ML VIAL SC SCH ×3 (06:01→23:27)
[2023-11-17 06:38] LABS: Hemoglobin 9.8 g/dL (14.0-18.0); Manual Diff?? YES; Mean Corpuscular HGB CONC 30.6 g/dL (32.0-36.0); Mean Corpuscular Hemoglobin 27.6 pg (27.0-31.0); Mean Corpuscular Volume 90.1 fl (78.0-98.0); Mean Platelet Volume 12.6 fL (7.4-10.4); Platelet Count 145 10x3/uL (130-400); RBC Distribution Width 17.2 % (11.5-14.5); Red Blood Cell (RBC) Count 3.55 mill/uL (4.70-6.10); White Blood Cell (WBC) Count 4.4 10x3/uL (4.8-10.8)
[2023-11-17 06:42] LABS: Delete Auto Diff?? YES
[2023-11-17 07:04] LABS: ALT (SGPT) 18 U/L (8-55); AST (SGOT) 34 U/L (5-34); Albumin 3.2 g/dL (3.4-4.8); Alkaline Phosphatase 55 U/L (40-110); Anion Gap 27 mmol/L (10-20); Bilirubin, Total 1.7 mg/dL (0.2-1.2); Calc. Creatinine Clearance 12 mL/min (70-130); Calcium 8.6 mg/dL (7.8-10.44); Carbon Dioxide 23 mmol/L (23-31); Chloride 93 mmol/L (98-107); Estimated GFR 7; Glucose 155 mg/dL (83-110); Potassium 4.3 mmol/L (3.5-5.1); Protein, Total 6.2 g/dL (5.8-8.1); Sodium 139 mmol/L (136-145)
[2023-11-17 07:15] LABS: BUN (Urea Nitrogen) 186 mg/dL (8.4-25.7)
[2023-11-17 07:33] LABS: Band 25 % (5-11); Burr Cells SLIGHT = 2-5 cells HPF (0-1); CellaVision Operator ID LAB.GE; Giant Platelets 0.9 % (0-5); Large Platelets 2.9 % (0-5); Lymphocytes 1 % (21-51); Metamyelocyte 2 % (0-0); Monocytes 7 % (0-10); Neutrophil 65 % (42-75); Platelet Adequacy Comment Platelets Normal; Polychromasia SLIGHT = 2-3 cells HPF (0-2); Total Cell Count 105
[2023-11-17] MEDS: Midodrine HCl 5 MG TAB PO SCH ×4 (07:42→21:07)
[2023-11-17] MEDS ORDERED: Albumin 25% 25 GM (100 mL) BOT IVPB SCH (08:30)
[2023-11-17] MEDS: Nystatin Cream 30 GM TUBE TOP SCH ×3 (08:32→21:07)
[2023-11-17] MEDS: Pantoprazole 40 MG VIAL IVP SCH (08:33)
[2023-11-17] MEDS ORDERED: DOBUTamine 500 mg/250 ml 250 ML IVPB SCH (13:45)
[2023-11-17 14:15] LABS: ANA Symphony (Qualitative) Negative (Negative); ANA Symphony (Quantitative) 0.1 Ratio (< 0.7 Negative); EliA Vaculitis New Method **** NEW METHOD ****; Mitochondrial Ab 1.4 U/mL (<4 Negative); dsDNA IgG Antibody 1.1 IU/mL (<10 Negative)
[2023-11-17] MEDS: cefTRIAXone\\ROCEPHIN 2 GM in Sodium Chloride 0.9% 100 ML IVPB SCH (17:47)
[2023-11-18] MEDS: Midodrine HCl 5 MG TAB PO SCH ×4 (08:43→20:51)
[2023-11-18] MEDS: Octreotide Acetate 100 MCG/ML VIAL SC SCH ×2 (08:43→14:11)
[2023-11-18] MEDS: Pantoprazole 40 MG VIAL IVP SCH (08:43)
[2023-11-18] MEDS: Nystatin Cream 30 GM TUBE TOP SCH ×3 (11:02→20:56)
[2023-11-18 11:11] LABS: Anion Gap 23 mmol/L (10-20); Calc. Creatinine Clearance 11 mL/min (70-130); Calcium 8.6 mg/dL (7.8-10.44); Carbon Dioxide 25 mmol/L (23-31); Chloride 90 mmol/L (98-107); Estimated GFR 6; Glucose 180 mg/dL (83-110); Sodium 134 mmol/L (136-145)
[2023-11-18 11:22] LABS: BUN (Urea Nitrogen) 184 mg/dL (8.4-25.7)
[2023-11-18 16:15] LABS: Alpha-1-Antitrypsin 239 mg/dL (101-187)
[2023-11-18] MEDS: cefTRIAXone\\ROCEPHIN 2 GM in Sodium Chloride 0.9% 100 ML IVPB SCH (18:14)
[2023-11-19] MEDS: Octreotide Acetate 100 MCG/ML VIAL SC SCH ×4 (00:32→22:48)
[2023-11-19] MEDS: DOBUTamine 500 mg/250 ml 250 ML IVPB SCH ×2 (04:35→21:00)
[2023-11-19 06:04] LABS: Hematocrit 35.1 % (42.0-52.0); Hemoglobin 11.1 g/dL (14.0-18.0); Mean Corpuscular HGB CONC 31.6 g/dL (32.0-36.0); Mean Corpuscular Hemoglobin 27.8 pg (27.0-31.0); Mean Corpuscular Volume 87.8 fl (78.0-98.0); Mean Platelet Volume 12.2 fL (7.4-10.4); Platelet Count 116 10x3/uL (130-400); RBC Distribution Width 17.8 % (11.5-14.5); White Blood Cell (WBC) Count 8.6 10x3/uL (4.8-10.8)
[2023-11-19 06:16] LABS: Anion Gap 26 mmol/L (10-20); Calc. Creatinine Clearance 12 mL/min (70-130); Calcium 8.7 mg/dL (7.8-10.44); Carbon Dioxide 16 mmol/L (23-31); Chloride 96 mmol/L (98-107); Estimated GFR 7; Glucose 156 mg/dL (83-110); Potassium 4.7 mmol/L (3.5-5.1); Sodium 133 mmol/L (136-145)
[2023-11-19 06:31] LABS: BUN (Urea Nitrogen) 155 mg/dL (8.4-25.7)
[2023-11-19] MEDS: Pantoprazole 40 MG VIAL IVP SCH (08:04)
[2023-11-19] MEDS: Thiamine 100 MG TAB PO SCH (08:08)
[2023-11-19] MEDS: Midodrine HCl 5 MG TAB PO SCH ×3 (08:08→20:52)
[2023-11-19] MEDS: Folic Acid 1 MG TAB PO SCH (08:08)
[2023-11-19] MEDS: Nystatin Cream 30 GM TUBE TOP SCH ×3 (08:09→20:53)
[2023-11-19] MEDS: HYDROcodone/Acetaminophen 5/325 mg Tablet PO PRN ×3 (09:35→21:05)
[2023-11-19] MEDS: DOPamine 400 MG/D5W 250 ML 250 ML IVPB SCH (13:00)
[2023-11-19 13:38] LABS: Smooth Muscle Total ABS 3 Units (0-19)
[2023-11-19] MEDS: cefTRIAXone\\ROCEPHIN 2 GM in Sodium Chloride 0.9% 100 ML IVPB SCH (18:02)
[2023-11-20 06:45] LABS: Anion Gap 22 mmol/L (10-20); Calc. Creatinine Clearance 13 mL/min (70-130); Calcium 8.7 mg/dL (7.8-10.44); Carbon Dioxide 21 mmol/L (23-31); Chloride 96 mmol/L (98-107); Estimated GFR 9; Glucose 144 mg/dL (83-110); Magnesium 2.1 mg/dL (1.6-2.6); Phosphorus 7.1 mg/dL (2.3-4.7); Potassium 4.3 mmol/L (3.5-5.1); Sodium 135 mmol/L (136-145)
[2023-11-20 06:57] LABS: BUN (Urea Nitrogen) 114 mg/dL (8.4-25.7)
[2023-11-20] MEDS: Midodrine HCl 5 MG TAB PO SCH ×3 (09:37→20:39)
[2023-11-20] MEDS: Folic Acid 1 MG TAB PO SCH (09:38)
[2023-11-20] MEDS: Thiamine 100 MG TAB PO SCH (09:38)
[2023-11-20] MEDS: Pantoprazole 40 MG VIAL IVP SCH (09:38)
[2023-11-20] MEDS: Nystatin Cream 30 GM TUBE TOP SCH ×3 (09:44→20:41)
[2023-11-20] MEDS: Octreotide Acetate 100 MCG/ML VIAL SC SCH ×3 (09:46→23:38)
[2023-11-20 11:10] LABS: RBC Count-Automated (BF) 10552 /cu.mm; WBC/Nucleated-Auto (BF) 6056 /cu.mm
[2023-11-20 11:18] LABS: BF Color Yellow; Body Fluid Source Ascites Body Fluid; Tube # EDTA
[2023-11-20 11:19] LABS: Clarity Cloudy/Turbid (Clear)
[2023-11-20 11:49] LABS: BF Segmented Neutrophils 64 %; Cell Count Non Hematic 25 %; Eosinophils 1 %; Lymphocytes 10 %
[2023-11-20] MEDS: HYDROcodone/Acetaminophen 5/325 mg Tablet PO PRN ×3 (11:49→20:38)
[2023-11-20] MEDS: DOBUTamine 500 mg/250 ml 250 ML IVPB SCH (14:00)
[2023-11-20] MEDS: DOPamine 400 MG/D5W 250 ML 250 ML IVPB SCH (15:59)
[2023-11-20] MEDS: cefTRIAXone\\ROCEPHIN 2 GM in Sodium Chloride 0.9% 100 ML IVPB SCH (17:26)
[2023-11-21] MEDS: HYDROcodone/Acetaminophen 5/325 mg Tablet PO PRN ×3 (00:46→08:52)
[2023-11-21] MEDS: Thiamine 100 MG TAB PO SCH (08:43)
[2023-11-21] MEDS: Pantoprazole 40 MG VIAL IVP SCH (08:43)
[2023-11-21] MEDS: Octreotide Acetate 100 MCG/ML VIAL SC SCH ×2 (08:43→14:05)
[2023-11-21] MEDS: Midodrine HCl 5 MG TAB PO SCH ×2 (08:43→14:05)
[2023-11-21] MEDS: Nystatin Cream 30 GM TUBE TOP SCH ×2 (08:43→14:05)
[2023-11-21] MEDS: Folic Acid 1 MG TAB PO SCH (08:43)
[2023-11-21] MEDS ORDERED: Morphine 2 MG/ML VIAL SLOW IVP PRN (11:02)
[2023-11-21 12:04] VITALS: BP 98/55; TEMP 97.5
[2023-11-21] MEDS: cefTRIAXone\\ROCEPHIN 2 GM in Sodium Chloride 0.9% 100 ML IVPB SCH (14:06)
== END 2023-11-21 15:33 | disposition hospice, inpatient (51) | DRG 432 ==
LOC: ERS 09:42 → ERHOLD 13:15 → 2NO 21:31
PROVIDERS: ADMIT Internal Medicine; ATTEND Internal Medicine
PROC: 30233J1 Transfusion of Nonautologous Serum Albumin into Peripheral Vein, Percutaneous Approach (ICD-10-PCS; 2023-11-14)
PROC: 0W9G3ZZ Drainage of Peritoneal Cavity, Percutaneous Approach (ICD-10-PCS; 2023-11-16)
PROC: 06H033Z Insertion of Infusion Device into Inferior Vena Cava, Percutaneous Approach (ICD-10-PCS; 2023-11-18)
PROC: 0W9G3ZZ Drainage of Peritoneal Cavity, Percutaneous Approach (ICD-10-PCS; principal; 2023-11-20)
DX: K70.31 Alcoholic cirrhosis of liver with ascites (principal); I21.A1 Myocardial infarction type 2; K65.2 Spontaneous bacterial peritonitis; K76.7 Hepatorenal syndrome; N17.9 Acute kidney failure, unspecified; N18.4 Chronic kidney disease, stage 4 (severe); E87.3 Alkalosis; E87.1 Hypo-osmolality and hyponatremia; I13.0 Hypertensive heart and chronic kidney disease with heart failure and stage 1 through stage 4 chronic kidney disease, or unspecified chronic kidney disease; R78.81 Bacteremia; Z66 Do not resuscitate; Z51.5 Encounter for palliative care; K29.90 Gastroduodenitis, unspecified, without bleeding; D50.9 Iron deficiency anemia, unspecified; I48.91 Unspecified atrial fibrillation; N18.30 Chronic kidney disease, stage 3 unspecified; R77.8 Other specified abnormalities of plasma proteins; E66.9 Obesity, unspecified; F10.20 Alcohol dependence, uncomplicated; I48.0 Paroxysmal atrial fibrillation; K21.9 Gastro-esophageal reflux disease without esophagitis; D63.1 Anemia in chronic kidney disease; E87.6 Hypokalemia; E11.22 Type 2 diabetes mellitus with diabetic chronic kidney disease; I50.811 Acute right heart failure; K76.82 Hepatic encephalopathy; Z79.82 Long term (current) use of aspirin; Z79.899 Other long term (current) drug therapy; Z95.0 Presence of cardiac pacemaker; Z98.890 Other specified postprocedural states
CPT/HCPCS: 36415; 49083; 71045; 74176; 80048; 80053; 80074; 81001; 82042; 82103; 82105; 82140; 82728; 83516; 83540; 83550; 83690; 83735; 83880; 84100; 84157; 84484; 85025; 85027; 85060; 85610; 85730; 86015; 86038; 86225; 86704; 86706; 86708; 86803; 87340; 88112; 88305; 89051; 90935; 93005; 93010; 93306; C9113; G0257; J0696; J1250; J1265; J1642; J1644; J2272; J2354; J3490; P9047; S0028

== ENCOUNTER 2023-11-21 16:00 | Inpatient (IN) | payer OTHER ==
[2023-11-21] MEDS ORDERED: Acetaminophen 325 MG TAB PO PRN (17:01)
[2023-11-21] MEDS ORDERED: Ondansetron PF 4 MG/2 ML Vial IVP PRN (17:11)
[2023-11-21] MEDS ORDERED: Lorazepam 2 MG/ML VIAL SLOW IVP PRN (17:12)
[2023-11-21] MEDS ORDERED: Senokot S 8.6-50 MG TAB PO PRN (17:13)
[2023-11-21] MEDS: Scopolamine 1 mg/72 hour Patch TOP SCH (18:16)
[2023-11-21] MEDS: fentaNYL 50 mcg/mL 1 mL Vial SLOW IVP PRN (18:20)
[2023-11-22] MEDS: fentaNYL 50 mcg/mL 1 mL Vial SLOW IVP PRN ×5 (02:39→17:22)
[2023-11-22] MEDS: Haloperidol Lactate 5 MG/ML VIAL SLOW IVP PRN (18:40)
[2023-11-23] MEDS: Haloperidol Lactate 5 MG/ML VIAL SLOW IVP PRN ×4 (01:58→21:51)
[2023-11-23] MEDS: fentaNYL 50 mcg/mL 1 mL Vial SLOW IVP PRN ×9 (06:02→23:19)
[2023-11-24] MEDS: fentaNYL 50 mcg/mL 1 mL Vial SLOW IVP PRN ×11 (01:03→23:58)
[2023-11-24] MEDS: Haloperidol Lactate 5 MG/ML VIAL SLOW IVP PRN (04:00)
[2023-11-24] MEDS: fentaNYL 12 mcg Patch TD SCH (09:05)
[2023-11-24] MEDS ORDERED: Haloperidol Lactate 5 MG/ML VIAL SLOW IVP SCH ×4 (10:00→16:00)
[2023-11-24] MEDS: Haloperidol Lactate 5 MG/ML VIAL SLOW IVP SCH ×2 (16:21→21:47)
[2023-11-24] MEDS: Scopolamine 1 mg/72 hour Patch TOP SCH (17:29)
[2023-11-25] MEDS: fentaNYL 50 mcg/mL 1 mL Vial SLOW IVP PRN ×3 (02:18→11:40)
[2023-11-25] MEDS: Haloperidol Lactate 5 MG/ML VIAL SLOW IVP SCH ×5 (04:39→21:02)
[2023-11-25] MEDS: Diazepam 10 MG/2 ML SYRINGE IVP SCH ×2 (12:29→17:46)
[2023-11-26] MEDS: Diazepam 10 MG/2 ML SYRINGE IVP SCH ×4 (00:22→18:03)
[2023-11-26] MEDS: Haloperidol Lactate 5 MG/ML VIAL SLOW IVP SCH ×4 (03:11→21:31)
[2023-11-26] MEDS ORDERED: Diazepam 10 MG/2 ML SYRINGE IVP SCH (12:15)
[2023-11-26 21:05] VITALS: TEMP 97.3
[2023-11-27] MEDS: Diazepam 10 MG/2 ML SYRINGE IVP SCH ×5 (00:23→23:42)
[2023-11-27] MEDS: fentaNYL 50 mcg/mL 1 mL Vial SLOW IVP PRN (02:01)
[2023-11-27] MEDS: GLYCOPYRROLATE/PF 0.2 MG/ML VIAL SLOW IVP PRN ×3 (02:01→23:42)
[2023-11-27] MEDS: Haloperidol Lactate 5 MG/ML VIAL SLOW IVP SCH ×4 (03:34→21:35)
[2023-11-27] MEDS: fentaNYL 12 mcg Patch TD SCH (09:43)
[2023-11-27] MEDS: Scopolamine 1 mg/72 hour Patch TOP SCH (18:43)
[2023-11-28] MEDS: Haloperidol Lactate 5 MG/ML VIAL SLOW IVP SCH ×3 (04:13→15:59)
[2023-11-28] MEDS: Diazepam 10 MG/2 ML SYRINGE IVP SCH ×3 (05:54→17:58)
[2023-11-28 08:27] VITALS: BP 77/46
[2023-11-28] MEDS: GLYCOPYRROLATE/PF 0.2 MG/ML VIAL SLOW IVP PRN ×2 (11:57→17:53)
== END 2023-11-28 19:45 | disposition expired | DRG 951 ==
LOC: 2NO 16:00 → MSONC 11-24
PROVIDERS: ADMIT Family Medicine; ATTEND Family Medicine
DX: Z51.5 Encounter for palliative care (principal); R18.8 Other ascites; K74.60 Unspecified cirrhosis of liver; I50.9 Heart failure, unspecified; I25.10 Atherosclerotic heart disease of native coronary artery without angina pectoris; I48.91 Unspecified atrial fibrillation; N28.9 Disorder of kidney and ureter, unspecified; Z74.01 Bed confinement status; Z98.890 Other specified postprocedural states
CPT/HCPCS: J1630; J2060; J3010; J3360; J3490